=== PATIENT | male | born 1985 | race Caucasian/White ===

== ENCOUNTER 2022-01-03 21:47 | Emergency (ER) | payer BC, SELFPAY ==
[2022-01-03 21:53] VITALS: BP 123/80; PULSE 116; RESP 18; TEMP 36.9; O2SAT 98; BMI 27.6
--- NOTE | 2022-01-03 22:14 | CRLHL7_ITS ---
For Patients: As a result of the Century Cures Act, medical imaging exams and procedure reports are released immediately into your electronic medical record. You may view this report before your referring provider. If you have questions, please contact your health care provider. INDICATION: Seizure TECHNIQUE: CT head without contrast. COMPARISON: None FINDINGS: CSF spaces: Within normal limits for age. Brain parenchyma: The cornell-white differentiation is normal. No sign of mass, hemorrhage, or midline shift. There is encephalomalacia in the left frontal lobe deep to the craniotomy site. Skull base and calvarium: The visualized paranasal sinuses and mastoid air cells demonstrate no acute or significant findings. The visualized orbits are grossly unremarkable. No skull fractures. Status post left frontal craniotomy. IMPRESSION: No acute abnormality. Status post left frontal craniotomy with underlying encephalomalacia. MRI may be useful for further evaluation if clinically indicated. Please note that all CT scans at this facility use dose modulation, iterative reconstruction, and/or weight-based dosing when appropriate to reduce radiation dose to as low as reasonably achievable. Dictated by Felicita Cordero MD @ 01/03/2022 10:59:07 PM (Electronically Signed)
--- NOTE | 2022-01-03 22:16 | ED_ITS ---
HPI - Seizure General Chief Complaint: Seizure Stated Complaint: Seizure Time Seen by Provider: 01/03/22 21:59 History of Present Illness HPI Narrative: This 36-year-old male comes in at the direction of his neurologist, Dr. Porter, from [place]. 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 This chemotherapy can cause tumor hemorrhage. He has had a resection of the tumor and is on this medicine adjunctively. He has had a few seizures in the somewhat distant past. He has been taking Keppra. Today he had a tonic-clonic seizure that started in his right lower extremity and then progressed throughout his body. This lasted for about 4 minutes. After awakening from the postictal state he did take his regular dose of Keppra 1000 mg in the evening. After this his primary doctor was contacted who requested he comes in here to have a CT scan to rule out of possible tumor hemorrhage which this new chemotherapy he is on presents some element of risk. The patient states that he has a headache but it is not the worst headache of his life. He feels tired with postictal symptoms. He was able to ambulate in here normally. Related Data Home Medications Medication Instructions Recorded Confirmed levetiracetam 1,000 mg tablet mg PO Q12H 01/03/22 sulfamethoxazole 400 tab 01/03/22 mg-trimethoprim 80 mg tablet Allergies Allergy/AdvReac Type Severity Reaction Status Date / Time No Known Drug Allergies Allergy Verified 01/03/22 21:57 Review of Systems Status of ROS: Reports: 10 or more systems reviewed and unremarkable except as noted in History and below Narrative: Constitutional: No fevers, no weight gain or loss. Eyes: No discharge. No vision changes. HENT: No congestion, no sore throat, no ear pain. He reports a headache. Cardiovascular: No chest pain, no palpitations. Respiratory: No shortness of breath, no wheezes, no cough. Gastrointestinal: No abdominal pain, no vomiting, no diarrhea. Genitourinary: No dysuria, no hematuria. Musculoskeletal: Normal range of motion. Skin: No rashes, no pruritis. Neurological: No dizziness, weakness, sensory change, speech change. Recent seizure with postictal symptoms that have now essentially resolved. Endo/Heme/Allergies: No bruising or bleeding. No polydipsia. Pysch: no suicidality, no anxiety, no insomnia. All other systems reviewed and are negative. PFSH PFSH Social History Smoking Status: Never smoker How often do you have a drink containing alcohol: never AUDIT-C Alcohol total score: 0 Non-prescribed substance use details: medicinal marijuana Exam Narrative: Exam Narrative: Constitutional: Well-developed, well-nourished, no acute distress. HEENT: Normocephalic, atraumatic. Surgical wound in the left side of his head as the astrocytoma tumor was resected in the past. Neck: Normal range of motion. Nontender. Supple. Heart: Regular. No murmurs. Normal rate. Intact distal pulses. Lungs: Clear to auscultation. No chest discomfort. No wheezes, rhonchi, or rales. Abdomen: Normal bowel sounds. Nontender. No rebound tenderness. Genitalia: Deferred. Back: No midline tenderness. Normal range of motion. Extremities: Normal range of motion. No injury. Skin: Intact. No rash. Warm. No erythema or pallor. Neurologic: No altered sensation. No weakness. Alert and oriented. Psychiatric: No suicidality. No anxiety or depression. No insomnia. Nursing notes and vitals signs are reviewed. Const: Vital Signs, click to edit/add: Vital Signs - 24 hr 01/03/22 21:53 Temperature 98.4 F Pulse Rate [Left P ulse Oximeter] 116 H Respiratory Rate 18 Blood Pressure [Ri ght Upper Arm] 123/80 Pulse Oximetry 98 Oxygen Delivery Me thod Room Air Course Vital Signs Vital signs: Initial Vital Signs Temperature 98.4 F 01/03/22 21:53 Temperature Source Oral 01/03/22 21:53 Pulse Rate 116 H 01/03/22 21:53 Respiratory Rate 18 01/03/22 21:53 Blood Pressure 123/80 01/03/22 21:53 Blood Pressure Mean 94 01/03/22 21:53 Blood Pressure Position Sitting 01/03/22 21:53 Pulse Oximetry 98 01/03/22 21:53 Oxygen Delivery Method 01/03/22 21:53 Vital Signs Temperature 98.4 F 01/03/22 21:53 Pulse Rate 116 H 01/03/22 21:53 Respiratory Rate 18 01/03/22 21:53 Blood Pressure 123/80 01/03/22 21:53 Pulse Oximetry 98 01/03/22 21:53 Oxygen Delivery Method 01/03/22 21:53 Temperature 98.4 F 01/03/22 21:53 Pulse Rate 116 H 01/03/22 21:53 Respiratory Rate 18 01/03/22 21:53 Blood Pressure 123/80 01/03/22 21:53 Pulse Oximetry 98 01/03/22 21:53 Oxygen Delivery Method 01/03/22 21:53 MDM - Seizure MDM Narrative Medical decision making narrative: This patient comes in to rule out a hemorrhage in the tumor in his brain as he just recently had a seizure. A CT scan is ordered and an IV was established. The patient's primary physician also requested that he receive an additional gram of Keppra intravenously. CT imaging returns with no acute findings and certainly no sign of hemorrhaging. The patient states that he is feeling okay but continues to have a [id number] headache. He is okay to be discharged home. He will be able to follow-up with his neurologist for further plans. Imaging Data CT scan - head: Radiologist's impression: No acute abnormality. Status post left frontal craniotomy with underlying encephalomalacia. Discharge Plan Discharge Clinical Impression: Astrocytoma, Generalized seizure Patient Disposition: Home, Self-Care Condition: Improved Instructions: Nonepileptic Seizures (ED) Additional Instructions: Follow-up with primary physician. Return if recurrent or worsening symptoms happen. Prescriptions: No Action sulfamethoxazole-trimethoprim 400-80 mg tablet Label Comments: TAKE 1 TABLET BY MOUTH DAILY FOR PROPHYLAXIS. CONTINUE UNTIL RECOVERY OF LYMPHOPENIA AFTER COMPLETION OF TEMOZOLOMIDE levetiracetam 1,000 mg tablet PO Q12H Follow Up/Referrals: Provider,Not a Local [Primary Care Provider] - Stand Alone Forms: [employer] Info Instructions
[2022-01-03 23:00] VITALS: BP 111/79; PULSE 80; RESP 16; O2SAT 95
[2022-01-03 23:30] VITALS: BP 106/70; PULSE 72; RESP 16; O2SAT 95
[2022-01-04] VITALS: BP 113/77; PULSE 62; RESP 16; O2SAT 93
[2022-01-05 11:41] LABS: Keppra (Levetiracetam) 29 ug/mL (10-40)
== END 2022-01-04 00:08 | disposition home or self-care (01) ==
PROVIDERS: Emergency Provider Emergency Medicine Emergency Medical Services
DX: C71.9 Malignant neoplasm of brain, unspecified (principal); G40.409 Other generalized epilepsy and epileptic syndromes, not intractable, without status epilepticus
CPT/HCPCS: 36415; 70450; 80177; 96365; 99283; 99284; 99285; J1953

== ENCOUNTER 2022-04-18 08:21 | Outpatient (CLI) | payer BC, SELFPAY ==
[2022-04-18 08:43] LABS: Basophils Percent Auto 0.3 % (0.0-3.0); Eosinophils Percent Auto 2.6 % (0.0-7.0); Hematocrit 45.3 % (37.0-53.0); Hemoglobin* 15.7 gm/dL (13.5-17.5); Lymphocytes Percent Auto 35.4 % (20-44); Mean Corpuscular HGB Conc 35 gm/dL (32-36); Mean Corpuscular Hemoglobin 33 pg (26-34); Mean Corpuscular Volume 94 fL (80-100); Monocytes Percent Auto 8.2 % (0.0-11.0); Neutrophils Percent Auto 53.5 % (42.0-72.0); Platelet Count* 175 K/uL (140-440); RDW Coefficient of Variation % 14.3 % (11.5-15.5); Red Blood Count 4.82 m/uL (4.30-5.90); White Blood Count* 3.79 K/uL (4.50-11.00)
[2022-04-18 08:44] LABS: Slide Review Reflex No
== END 2022-04-18 08:22 | disposition home or self-care (01) ==
DX: C71.9 Malignant neoplasm of brain, unspecified (principal)
CPT/HCPCS: 36415; 85025

== ENCOUNTER 2022-06-04 11:31 | Emergency (ER) | payer BC, SELFPAY ==
[2022-06-04 11:47] VITALS: BP 143/87; PULSE 99; RESP 18; TEMP 36.7; O2SAT 95; BMI 26.5
--- NOTE | 2022-06-04 12:23 | ED_ITS ---
HPI - General Adult General Chief complaint: Constipation Stated complaint: GI Issues Time Seen by Provider: 06/04/22 12:05 History of Present Illness HPI narrative: This 37-year-old male comes in reporting constipation over the past several weeks. He finished chemotherapy 6 weeks ago for an astrocytoma. He was on an antibiotic during the time of the chemotherapy but is no longer. He also recently discontinued his zonisamide. He has been taking MiraLax, senna, and bisacodil sodium. He does report some increased urinary frequency. He does not have any fevers and has no abdominal pain. He has no nausea or vomiting. He is not taking any narcotic medications. Related Data Home Medications Medication Instructions Recorded Confirmed lacosamide 150 mg tablet 150 mg PO BID 03/05/22 03/05/22 levetiracetam 500 mg ea PO 03/05/22 03/05/22 tablet,extended release 24 hr levetiracetam 750 mg 3,000 mg PO Q24H 03/05/22 03/05/22 tablet,extended release 24 hr midazolam 5 mg/spray (0.1 mL) ea intranasal 03/05/22 03/05/22 nasal spray (Nayzilam) ondansetron HCl 8 mg tablet 8 mg PO QDAY PRN nausea and 03/05/22 03/05/22 vomiting prochlorperazine maleate 10 mg 10 mg PO Q6H PRN nausea and 03/05/22 03/05/22 tablet vomiting temozolomide 180 mg capsule cap PO 03/05/22 03/05/22 temozolomide 250 mg capsule cap PO 03/05/22 03/05/22 zonisamide 100 mg capsule ea PO 03/05/22 03/05/22 Allergies Allergy/AdvReac Type Severity Reaction Status Date / Time No Known Drug Allergies Allergy Verified 01/03/22 21:57 Review of Systems Status of ROS: Reports: 10 or more systems reviewed and unremarkable except as noted in History and below Narrative: Constitutional: No fevers, no weight gain or loss. Eyes: No discharge. No vision changes. HENT: No congestion, no sore throat, no ear pain. Cardiovascular: No chest pain, no palpitations. Respiratory: No shortness of breath, no wheezes, no cough. Gastrointestinal: No abdominal pain, no vomiting, no diarrhea. He reports constipation. Genitourinary: No hematuria. Some increased urinary frequency that he attributes to constipation. Musculoskeletal: Normal range of motion. Skin: No rashes, no pruritis. Neurological: No dizziness, weakness, sensory change, speech change. Endo/Heme/Allergies: No bruising or bleeding. No polydipsia. Pysch: no suicidality, no anxiety, no insomnia. All other systems reviewed and are negative. PFSH PFS Social History Smoking Status: Never smoker How often do you have a drink containing alcohol: never AUDIT-C Alcohol total score: 0 Non-prescribed substance use details: medicinal marijuana Exam Narrative: Exam Narrative: Constitutional: Well-developed, well-nourished, no acute distress. HEENT: Normocephalic, atraumatic. Neck: Normal range of motion. Nontender. Supple. Heart: Regular. No murmurs. Normal rate. Intact distal pulses. Lungs: Clear to auscultation. No chest discomfort. No wheezes, rhonchi, or ral es. Abdomen: Normal bowel sounds. Nontender. No rebound tenderness. No findings suspicious of obstruction. Genitalia: Deferred. Back: No midline tenderness. Normal range of motion. Extremities: Normal range of motion. No injury. Skin: Intact. No rash. Warm. No erythema or pallor. Neurologic: No altered sensation. No weakness. Alert and oriented. Psychiatric: No suicidality. No anxiety or depression. No insomnia. Nursing notes and vitals signs are reviewed. Const: Vital Signs, click to edit/add: Vital Signs - 24 hr 06/04/22 11:47 Temperature 98.0 F Pulse Rate [Right Pulse Oximeter] 99 Respiratory Rate 18 Blood Pressure [Ri ght Upper Arm] 143/87 H Pulse Oximetry 95 Oxygen Delivery Me thod Room Air Course Vital Signs Vital signs: Initial Vital Signs Temperature 98.0 F 06/04/22 11:47 Temperature Source Temporal Artery Scan 06/04/22 11:47 Pulse Rate 99 06/04/22 11:47 Pulse Rhythm 06/04/22 11:47 Respiratory Rate 18 06/04/22 11:47 Blood Pressure 143/87 H 06/04/22 11:47 Blood Pressure Mean 105 06/04/22 11:47 Blood Pressure Position Sitting 06/04/22 11:47 Pulse Oximetry 95 06/04/22 11:47 Oxygen Delivery Method 06/04/22 11:47 Vital Signs Temperature 98.0 F 06/04/22 11:47 Pulse Rate 99 06/04/22 11:47 Respiratory Rate 18 06/04/22 11:47 Blood Pressure 143/87 H 06/04/22 11:47 Pulse Oximetry 95 06/04/22 11:47 Oxygen Delivery Method 06/04/22 11:47 Temperature 98.0 F 06/04/22 11:47 Pulse Rate 99 06/04/22 11:47 Respiratory Rate 18 06/04/22 11:47 Blood Pressure 143/87 H 06/04/22 11:47 Pulse Oximetry 95 06/04/22 11:47 Oxygen Delivery Method 06/04/22 11:47 Medical Decision Making MDM Narrative Medical decision making narrative: This patient initially was thinking that he should have a CT scan because of his symptoms of constipation. His vital signs and exam actually are rather normal. I did discuss lab and imaging options and these were declined in a process of shared decision making. I did describe treatment options including how an enema can be administered. He states that he wants to go home and use an enema and [id number] oral medications more effectively to get better results. Discharge Plan Discharge Clinical Impression: Constipation Patient Disposition: Home, Self-Care Condition: Stable Additional Instructions: Use [id number] medicines for constipation as needed and directed. Follow up with MD or return if worsening symptoms happen. Prescriptions: No Action levetiracetam 750 mg tablet extended release 24 hr 3,000 mg PO Q24H levetiracetam 500 mg tablet extended release 24 hr PO Label Comments: TAKE 1 TABLET BY MOUTH EVERY DAY Nayzilam 5 mg/spray (0.1 mL) spray,non-aerosol intranasal zonisamide 100 mg capsule PO prochlorperazine maleate 10 mg tablet 10 mg PO Q6H PRN (Reason: nausea and vomiting) Label Comments: TAKE 1 TABLET BY MOUTH EVERY 6 HOURS NEEDED FOR FORNAUSEA AND VOMITING lacosamide 150 mg tablet 150 mg PO BID ondansetron HCl 8 mg tablet 8 mg PO QDAY PRN (Reason: nausea and vomiting) Label Comments: takes 5 times a month during chemo temozolomide 250 mg capsule PO temozolomide 180 mg capsule PO Follow Up/Referrals: Provider,Not a Local [Primary Care Provider] - Stand Alone [facility]
[2022-06-04 12:42] VITALS: BP 143/87; PULSE 99; RESP 18; TEMP 36.7
== END 2022-06-04 12:42 | disposition home or self-care (01) ==
PROVIDERS: Emergency Provider Emergency Medicine Emergency Medical Services
DX: K59.00 Constipation, unspecified (principal)
CPT/HCPCS: 99282; 99283; 99284

== ENCOUNTER 2022-06-06 13:10 | Emergency (ER) | payer BC, SELFPAY ==
[2022-06-06 13:28] VITALS: BP 133/83; PULSE 80; RESP 16; TEMP 36.9; O2SAT 98; BMI 26.5
--- NOTE | 2022-06-06 13:57 | ED_ITS ---
HPI - General Adult General Date Seen: 06/06/22 Chief complaint: Abdominal Pain Stated complaint: Constipation worse since Monday Time Seen by Provider: 06/06/22 13:39 Source: patient and family Mode of arrival: ambulatory Limitations: no limitations History of Present Illness HPI narrative: Patient is a 37-year-old male here for re-evaluation of constipation. He has an astrocytoma, has been undergoing chemotherapy. He has been done with chemotherapy and with antibiotics now for a bit, but has been having difficulty with constipation which it sounds like was mild until the past week or so. He was seen here a few days ago, at that time denied much of an intervention but did go home unused magnesium sulfate along with MiraLax 2 days ago. He said he had a lot of liquid stool at that time but still feels like he has an obstruction. Initially, it sounded like this maybe was impacted stool. He was noting of frequent urination, going every 3 hours or so but also notes that he has been drinking lot of fluid. He really has not had much no abdominal pain. No nausea or vomiting. He says he has been eating a lot, did not need as much today because he was afraid of putting more in his stomach because he has not had a bowel movement yesterday or today. He still feels like he needs to go, he was up overnight last night feeling like he is ago was not able to. Related Data Home Medications Medication Instructions Recorded Confirmed lacosamide 150 mg tablet 150 mg PO BID 03/05/22 03/05/22 midazolam 5 mg/spray (0.1 mL) ea intranasal 03/05/22 03/05/22 nasal spray (Nayzilam) temozolomide 180 mg capsule cap PO 03/05/22 03/05/22 temozolomide 250 mg capsule cap PO 03/05/22 03/05/22 brivaracetam 100 mg tablet 100 mg PO BID 06/06/22 06/06/22 (Briviact) trazodone 100 mg tablet mg PRN 06/06/22 Allergies Allergy/AdvReac Type Severity Reaction Status Date / Time No Known Drug Allergies Allergy Verified 01/03/22 21:57 Review of Systems Status of ROS: Reports: 6 or more systems reviewed and unremarkable except as noted in History and below PFSH PFSH Social History Smoking Status: Never smoker How often do you have a drink containing alcohol: never AUDIT-C Alcohol total score: 0 Non-prescribed substance use details: medicinal marijuana Exam Narrative: Exam Narrative: Vital signs as noted above. In general, an alert, well-appearing patient. Head: Normocephalic, atraumatic. Eyes: Pupils are equal reactive. Extraocular movements are full. Conjunctivae are normal. ENT: Mucous membranes are moist. Throat is normal. Neck: Supple without lymphadenopathy. Heart: Regular rate and rhythm. No murmur or rub. Lungs: Clear bilaterally. No increased work of breathing, crackles or wheezes. Abdomen: Soft and nontender. No organomegaly. Rectal: Empty vault, nontender. Extremities: Well perfused. No edema. No calf tenderness. Pulses intact. Neurologic: Patient is alert and oriented to person and place. Speech is fluent. Face is symmetric. Moves all extremities equally. Affect: Normal. Skin: Warm and dry. Well perfused. Const: Vital Signs, click to edit/add: Vital Signs - 24 hr 06/06/22 13:28 Temperature 98.4 F Pulse Rate [Right Pulse Oximeter] 80 Respiratory Rate 16 Blood Pressure [Ri ght Upper Arm] 133/83 Pulse Oximetry 98 Oxygen Delivery Me thod Room Air Documenting provider has reviewed patient's vital signs: yes Course Course Hospital Course: Patient had an abdominal flat and upright. He does still have a fair amount of stool in the colon, no free air or evidence of obstruction. Final radiology read is as follows:Bowel: Bowel pattern is normal. Diffuse colonic fecal retention. Soft tissues: No sign of free air. No sign of soft tissue mass. No suspicious calcifications. Bones: Unremarkable for age. I have recommended that we try an enema. There is no evidence of rectal fecal impaction. I have tried to reassure them that there is nothing to suggest a bowel obstruction. He does not have significant abdominal pain, he is not vom iting, his abdominal exam is entirely benign, and my suspicion for more significant abdominal diagnosis such as appendicitis, colitis, diverticulitis, bowel obstruction, pancreatitis, cholecystitis, etcetera is extraordinarily low. I think if he is able to have a bowel movement and feels improved I would not recommend further evaluation, although apparently at his last visit CT scan with contrast was discussed in his is still very interested at this point in doing a CT scan. Will see how he feels after an enema. Following the pink lady, patient had a large amount of stool. He feels sig nificantly better. He does not feel he needs additional workup. We talked about keeping up with MiraLax and fluids. If he is having ongoing difficulties with constipation would recommend follow-up with primary care. Return to the ER if he has a change in his symptoms such as if he develops significant abdominal pain, vomiting, fever, etcetera. He is comfortable with that. Vital Signs Vital signs: Initial Vital Signs Temperature 98.4 F 06/06/22 13:28 Temperature Source Temporal Artery Scan 06/06/22 13:28 Pulse Rate 80 06/06/22 13:28 Pulse Rhythm 06/06/22 13:28 Respiratory Rate 16 06/06/22 13:28 Blood Pressure 133/83 06/06/22 13:28 Blood Pressure Mean 99 06/06/22 13:28 Blood Pressure Position Sitting 06/06/22 13:28 Pulse Oximetry 98 06/06/22 13:28 Oxygen Delivery Method 06/06/22 13:28 Vital Signs Temperature 98.4 F 06/06/22 13:28 Pulse Rate 80 06/06/22 13:28 Respiratory Rate 16 06/06/22 13:28 Blood Pressure 133/83 06/06/22 13:28 Pulse Oximetry 98 06/06/22 13:28 Oxygen Delivery Method 06/06/22 13:28 Temperature 98.4 F 06/06/22 13:28 Pulse Rate 80 06/06/22 13:28 Respiratory Rate 16 06/06/22 13:28 Blood Pressure 133/83 06/06/22 13:28 Pulse Oximetry 98 06/06/22 13:28 Oxygen Delivery Method 06/06/22 13:28 Discharge Plan Discharge Clinical Impression: Constipation Patient Disposition: Home, Self-Care Condition: Improved Instructions: Constipation (ED) Additional Instructions: Continue MiraLax daily, plenty of fluids. If ongoing problems with constipation, follow up with primary care. Return to the ER for severe abdominal pain, vomiting, fevers, or other acute worsening Activity Level: No Restrictions Discharge Diet: Regular Diet Detail: Include fiber rich foods and drinking plenty of fluids into your diet. Prescriptions: No Action Nayzilam 5 mg/spray (0.1 mL) spray,non-aerosol intranasal lacosamide 150 mg tablet 150 mg PO BID temozolomide 250 mg capsule PO temozolomide 180 mg capsule PO Briviact 100 mg tablet 100 mg PO BID trazodone 100 mg tablet PRN Label Comments: TAKE 1 TABLET ONCE DAILY BY MOUTH BEFORE BEDTIME Follow Up/Referrals: Provider,Not a Local [Primary Care Provider] - Stand Alone [facility] Discharge Comment: Pt discharging with , went over high fiber diet and importance of drinking water and incorporating fiber into his diet.
--- NOTE | 2022-06-06 14:20 | CRLHL7_ITS ---
For Patients: As a result of the Cures Act, medical imaging exams and procedure reports are released immediately into your electronic medical record. You may view this report before your referring provider. If you have questions, please contact your health care provider. INDICATION: Constipation TECHNIQUE: Abdomen 2 view. COMPARISON: None FINDINGS: Bowel: Bowel pattern is normal. Diffuse colonic fecal retention. Soft tissues: No sign of free air. No sign of soft tissue mass. No suspicious calcifications. Bones: Unremarkable for age. IMPRESSION: Diffuse colonic fecal retention. Dictated by Michael Long MD @ 06/06/2022 2:56:03 PM Dictated by: Michael Lnog MD @ 06/06/2022 14:56:11 (Electronically Signed)
[2022-06-06] MEDS: DOC/MIN OIL/MAG CIT/SOD PHOS 376 ML ENEMA PR (15:16)
== END 2022-06-06 15:53 | disposition home or self-care (01) ==
PROVIDERS: Emergency Provider Emergency Medicine
DX: K59.00 Constipation, unspecified (principal)
CPT/HCPCS: 74019; 99283; 99284

== ENCOUNTER 2022-09-13 11:30 | Outpatient (RCR) | payer BC, SELFPAY | END 2023-01-10 13:51 | disposition home or self-care (01) | PROVIDERS: PCP Physician Assistant; Visit Provider Physician Assistant | DX: C71.9 Malignant neoplasm of brain, unspecified (principal); M62.81 Muscle weakness (generalized); Z51.89 Encounter for other specified aftercare | CPT/HCPCS: 97110; 97112; 97162 ==

== ENCOUNTER 2024-01-26 22:22 | Emergency (ER) | payer BC, SELFPAY ==
[2024-01-26 22:33] VITALS: BP 141/89; PULSE 86; RESP 16; TEMP 37; O2SAT 98; BMI 29.8
[2024-01-26 23:15] LABS: Basophils Absolute Auto 0.02 K/uL (0.00-0.30); Basophils Percent Auto 0.3 % (0.0-3.0); Eosinophils Absolute Auto 0.38 K/uL (0.00-0.50); Eosinophils Percent Auto 6.4 % (0.0-7.0); Hematocrit 53.7 % (37.0-53.0); Hemoglobin* 17.8 gm/dL (13.5-17.5); Immature Granulocytes Abs Auto 0.01 K/uL (0.00-0.30); Immature Granulocytes Pct Auto 0.2 %; Lymphocytes Absolute Auto 2.57 K/uL (0.90-2.90); Lymphocytes Percent Auto 43.3 % (20-44); Mean Corpuscular HGB Conc 33 gm/dL (32-36); Mean Corpuscular Hemoglobin 29 pg (26-34); Mean Corpuscular Volume 89 fL (80-100); Monocytes Percent Auto 8.8 % (0.0-11.0); Platelet Count* 208 K/uL (140-440); RDW Coefficient of Variation % 13.1 % (11.5-15.5); Red Blood Count 6.05 m/uL (4.30-5.90); White Blood Count* 5.94 K/uL (4.50-11.00)
[2024-01-26 23:17] LABS: Slide Review Reflex No
[2024-01-26 23:29] LABS: Chloride* 102 mmol/L (96-114); Potassium* 3.9 mmol/L (3.6-5.1); Sodium* 138 mmol/L (135-149)
[2024-01-26 23:32] LABS: Anion Gap 11 mEq/L (7-15); Blood Urea Nitrogen* 18 mg/dL (5-24); Carbon Dioxide* 25 mmol/L (20-32); Creatinine* 0.9 mg/dL (0.5-1.5); Est. Creatinine Clearance* 122.15; Estimated Glomerular Filt Rate 112 ml/min; Glucose* 100 mg/dL (60-115)
[2024-01-26 23:33] LABS: Calcium* 9.3 mg/dL (8.4-10.6)
--- NOTE | 2024-01-26 23:53 | ED_ITS ---
HPI - General Adult General Date Seen: 01/26/24 Chief complaint: Chest Pain Stated complaint: chest pain Time Seen by Provider: 01/26/24 23:52 History of Present Illness HPI narrative: 38-year-old male with a history of astrocytoma (previous chemotherapy), brivace juarez, lancosamide prevent seizures, presenting to the ER today with his with concern for chest pain. He notes that he has had occasional very brief episodes of chest pain off and on every few months for several months. There is no pattern to them and they are not related to exertion or any other activity or position. He started having chest pain tonight at about 9:50 p.m.. He had been feeling normal earlier today. No other recent illness or symptoms. His notes that he had chili for dinner and she wonders if he might have been having a ?heartburn. ? Patient says the pain did not feel in any way like previous episodes of heartburn that he used experience His chest pain was located in the left upper chest just lateral to the left upper sternal border. It was sharp in nature. It was pleuritic. It also is worse with movement. It did not radiate. No symptoms through to the back, down the abdomen, up to the jaw, down the arm. No palpitations. It made him sweaty. It was quite intense. No nausea or vomiting. No dizziness. He has no recent travel or immobilization. No recent surgery. No swelling in his legs. No family history of coronary disease. Never smoker. Does not drink alcohol. No drugs. He has been consistent in taking his seizure meds and has not had a seizure in several years. He had previous resection of his astrocytoma at [facility]. He has completed his chemotherapy. He has had good response to therapy. The tumor is still there in his brain but is not growing. He is currently in surveillance. He actually has an appointment next week at [facility] for a follow-up. Related Data Home Medications ?Medication ?Instructions ?Recorded ?Confirmed midazolam 5 mg/spray (0.1 mL) ea intranasal 03/05/22 11/21/23 nasal spray (Nayzilam) brivaracetam 100 mg tablet 100 mg PO BID 06/06/22 11/21/23 (Briviact) lacosamide 200 mg tablet mg PO 09/21/23 11/21/23 Allergies Allergy/AdvReac Type Severity Reaction Status Date / Time zonisamide Allergy Verified 11/21/23 15:07 [facility] Medical History History of brain cancer ?Z85.841 - Personal history of malignant neoplasm of brain (ICD-10) Seizures ?R56.9 - Unspecified convulsions (ICD-10) Surgical History H/O brain surgery ?Z98.890 - Other specified postprocedural states (ICD-10) Social History (Updated 10/24/23 @ 14:49 by Marycruz Rayo ~ [facility], [facility]) Narrative: former chewing tobacco user Smoking Status: Never smoker Do you use any of these nicotine containing products: None Second hand tobacco smoke exposure: No How often do you have a drink containing alcohol: never AUDIT-C Alcohol total score: 0 Non-prescribed substance use details: medicinal marijuana Exam Narrative: Exam Narrative: Constitutional: Appears well-developed and well-nourished. Alert. Conversant. Non toxic. HENT: Head: Atraumatic. Nose: Nose normal. Mouth/Throat: Oral mucosa is clear and moist. no trismus. Pharynx normal. Eyes: Conjunctivae normal. EOM normal. Pupils equal, round, and reactive to light. No scleral icterus. Neck: Normal range of motion. Neck supple. No tracheal deviation present. No JVD Cardiovascular: Normal rate, regular rhythm. No gallop. No friction rub. No murmur heard. Symmetric radial and PT artery pulses Pulmonary/Chest: Effort normal. No stridor. No respiratory distress. No wheezes. No rales. No rhonchi . No tenderness. No rash Abdominal: Soft. Bowel sounds normal. No distension. No mass. No tenderness. No rebound. No guarding. Musculoskeletal: RUE: Normal range of motion. No tenderness. No deformity LUE: Normal range of motion. No tenderness. No deformity RLE: Normal range of motion. No edema. No tenderness. No deformity LLE: Normal range of motion. No edema. No tenderness. No deformity Neurological: Alert and oriented to person, place, and time. Normal strength. CN II-VII intact. No sensory deficit. GCS eye subscore is 4. GCS verbal subscore is 5. GCS motor subscore is 6. Normal coordination Skin: Skin is warm and dry. No rash noted. No pallor. Normal capillary refill. Psychiatric: Normal mood. Normal affect. Const: Vital Signs, click to edit/add: Vital Signs - 24 hr 01/26/24 22:33 Temperature 98.6 F Pulse Rate [Pulse Oximeter] 86 Respiratory Rate 16 Blood Pressure [Ri ght Upper Arm] 141/89 H Pulse Oximetry 98 Oxygen Delivery Me thod Room Air Course Vital Signs Vital signs: Initial Vital Signs Temperature 98.6 F 01/26/24 22:33 Temperature Source Temporal Artery Scan 01/26/24 22:33 Pulse Rate 86 01/26/24 22:33 Pulse Rhythm Regular 01/26/24 22:33 Respiratory Rate 16 01/26/24 22:33 Blood Pressure 141/89 H 01/26/24 22:33 Blood Pressure Mean 106 H 01/26/24 22:33 Blood Pressure Position Sitting 01/26/24 22:33 Pulse Oximetry 98 01/26/24 22:33 Oxygen Delivery Method Room Air 01/26/24 22:33 Vital Signs Temperature 98.6 F 01/26/24 22:33 Pulse Rate 86 01/26/24 22:33 Respiratory Rate 16 01/26/24 22:33 Blood Pressure 141/89 H 01/26/24 22:33 Pulse Oximetry 98 01/26/24 22:33 Oxygen Delivery Method Room Air 01/26/24 22:33 Temperature 98.6 F 01/26/24 22:33 Pulse Rate 86 01/26/24 22:33 Respiratory Rate 16 01/26/24 22:33 Blood Pressure 141/89 H 01/26/24 22:33 Pulse Oximetry 98 01/26/24 22:33 Oxygen Delivery Method Room Air 01/26/24 22:33 Medications Administered Medications: Discontinued Medications Generic Name Dose Route Start Last Admin Trade Name Freq PRN Reason Stop Dose Admin Aspirin 162 mg 01/27/24 00:20 01/27/24 01:24 Aspirin 81 Mg Tab.Chew PO 01/27/24 00:21 Not Given ONCE ONE Medical Decision Making MDM Narrative Medical decision making narrative: This patient presents to the ER today for evaluation of chest pain that began at 9:50 p.m. tonight while at rest. Differential was broad. No evidence of palpitations, syncope or other cardiac dysrhythmia. We considered possible ACS, however workup with EKG and troponin is negative. HEART score is 1. Given time since onset of symptoms, I do not think the patient needs to be admitted for further sets of enzymes. EKG shows no evidence for pericarditis. Clinical presentation not suggestive of myocarditis. Chest x-ray shows no evidence for pneumonia, pneumothorax, pulmonary edema, pleural effusion, rib fracture, cardiomegaly. Mediastinum is normal on the x-ray. The patient has no ripping or tearing pain through to the back and has symmetric pulses on exam, no other acute neuro findings so I doubt aortic dissection. Risk of radiation and contrast exposure would outweigh the benefit of CT angiogram. We considered PE for this patient. Overall low risk but does have history of malignancy and did have sinus tachycardia on presenting EKG. No other signs or symptoms of PE. Overall low risk. D-dimer negative so will hold off on CT PA. No wheezing or bronchospasm to suggest COPD/asthma. No signs of chest wall cellulitis, shingles, injury. CBC does show an elevated hemoglobin at 17.8. Patient says that his doctors at [facility] had been following this when he was on chemotherapy. Unclear if he has underlying polycythemia. Recommend outpatient follow-up with his providers at [facility]. He has an appointment in 5 days on Monday. With reasonable clinical confidence, I think the patient is safe for outpatient follow up. Discussed return precautions. Questions answered. Patient voices comfort with the plan. Lab Data Labs: Lab Results 01/26/24 01/26/24 01/27/24 Range/Units 22:42 23:05 00:55 WBC 5.94 (4.50-11.00) K/uL RBC 6.05 H (4.30-5.90) m/uL Hgb 17.8 H (13.5-17.5) gm/dL Hct 53.7 H (37.0-53.0) % MCV 89 (80-100) fL MCH 29 (26-34) pg MCHC 33 (32-36) gm/dL RDW Coeff of [place] 13.1 (11.5-15.5) % Plt Count 208 (140-440) K/uL Neut % (Auto) 41.0 L (42.0-72.0) % Lymph % (Auto) 43.3 (20-44) % [place] % (Auto) 8.8 (0.0-11.0) % Eos % (Auto) 6.4 (0.0-7.0) % Baso % (Auto) 0.3 (0.0-3.0) % Neut # (Auto) 2.40 (1.7-7.0) K/uL Lymph # (Auto) 2.57 (0.90-2.90) K/uL [place] # (Auto) 0.50 (0.00-0.90) K/UL Eos # (Auto) 0.38 (0.00-0.50) K/uL Baso # (Auto) 0.02 (0.00-0.30) K/uL Abs Immat Gran (auto) 0.01 (0.00-0.30) K/uL Imm/Tot Granulo (auto) 0.2 % D-Dimer Quant (PE/DVT) 0.26 (0.00-0.50) ug/ml Sodium 138 (135-149) mmol/L Potassium 3.9 (3.6-5.1) mmol/L Chloride 102 (96-114) mmol/L Carbon Dioxide 25 (20-32) mmol/L Anion Gap 11 (7-15) mEq/L BUN 18 (5-24) mg/dL Creatinine 0.9 (0.5-1.5) mg/dL Estimated Creat Clear 122.15 Estimated GFR 112 ml/min Glucose 100 (60-115) mg/dL Calcium 9.3 (8.4-10.6) mg/dL POC Troponin I 0.00 L 0.00 L (0.01-0.04) ng/ml Imaging Data Chest x-ray: Attestation: I have reviewed the pertinent imaging results. Radiologist's impression: Findings/Impression: No acute cardiopulmonary process detected. ECG Data Attestation: I personally reviewed and interpreted this ECG as follows: Interpretation: Sinus tachycardia Rate: 103 MI: 160 QRS axis: No pathologic Q-waves. Computer mentions septal infarct but I do not believe that these are true Q-waves. They are S waves preceded by very small R- waves ST segment/T wave: Nonspecific T-wave flattening 1, 2, aVL, AVF, V3-V6. No ST segment elevation or depression QTc: 411 Discharge Plan Discharge Clinical Impression: Chest pain Patient Disposition: Home, Self-Care Condition: Stable Instructions: Chest Pain (DC) Additional Instructions: As we discussed, please come back to the ER right away if you have any more episodes of chest pain, or if you have other concerning symptoms like trouble breathing, palpitations, fainting spells, or any other problems. Please follow-up with your doctors at [facility] next Monday for your recheck and ask them to recheck your blood counts and hemoglobin level. Prescriptions: No Action Nayzilam 5 mg/spray (0.1 mL) spray,non-aerosol intranasal lacosamide 200 mg tablet PO Briviact 100 mg tablet 100 mg PO BID Follow Up/Referrals: BOB VAZQUEZ DO [Primary Care Provider] - Stand Alone Forms: [facility] Info Instructions
--- NOTE | 2024-01-27 00:20 | CRLHL7_ITS ---
For Patients: As a result of the Cures Act, medical imaging exams and procedure reports are released immediately into your electronic medical record. You may view this report before your referring provider. If you have questions, please contact your health care provider. Indication: Left-sided chest pain Technique: Two views of the chest Comparison: None Findings/Impression: No acute cardiopulmonary process detected. Dictated by Darron Grady MD @ 01/27/2024 12:38:02 AM (Electronically Signed)
--- OUTSIDE RECORDS SUMMARY | 2024-01-27 00:31 | XMS_ITS | Clinical Summary ---
Author Organization [facility] Address [place], [place] [address] Care Team Providers Care Hospital Insurance Clerk Name Role Phone Horacio Steve DO Primary Care Provider [phone] Allergies Active Allergy Reactions Criticality Noted Date Comments Pollen Extracts *Unknown 10/27/2021 Zonisamide Other - Describe In Comment Field 05/30/2022 Suicidal ideations Medications Medication Sig Dispensed Refills Start Date End Date Status midazolam (Nayzilam) 5 mg/spray (0.1 mL) spry Inhale 5 mg into affected nostril(s) one time if needed. 03/02/2022 Active lacosamide (VIMPAT) 200 mg tab tablet Take 1 Tablet (200 mg) by mouth two times daily. 12/12/2022 Active brivaracetam (BRIVIACT) 100 mg tablet Take 2 Tablets (200 mg) by mouth two times daily. 0 12/12/2022 Active Active Problems Problem Noted Date Diagnosed Date Insomnia 07/07/2022 Suicide ideation 05/30/2022 Symptomatic localization-related epilepsy 2022 Problems of adjustment to life-cycle transitions 01/11/2022 Other specified postprocedural states 10/16/2018 Overview (12/12/2022): Last Assessment & Plan: 07/02/15 SURGERY-Left frontal craniotomy with resection by Dr. Satya Reyes, neurosurgery at [facility]. 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 10/16/2018 second SURGERY: Craniotomy by Dr. Vargas. 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 Next generation sequencing through [facility]; Microsatellite Instability Seq DNA-Tumor Stable. Tumor Mutational [place] Seq DNA-Tumor: Low (5). Genomic Loss of Heterozygosity Seq DNA-Tumor: Low - 6% -06/23/2021 thrid SURGERY: Craniotomy for mass resection by Dr. Vargas. PATHOLOGY: WHO grade 2 recurrence. Histologic sections show a hypercellular lesion with numerous gemistocytic neoplastic cells. The mitotic activity is inconspicuous. No necrosis or microvascular proliferation is seen. Post- operative imaging with no evidence for residual enhancement Astrocytoma brain tumor 09/12/2018 Overview (09/12/2018): Followed by Dr. Rivera [phone] Astrocytoma, 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 Immunizations Name Administration Dates Next Due DTP 10/10/1990 MMR 01/07/1998 Oral Polio Vaccine 10/10/1990 Td (Age >=7 Years) 04/14/2004,01/07/1998 Tdap 12/12/2022 Social History Tobacco Use Types Packs/Day Years Used Date Smoking Tobacco: Former Cigarettes 0.3 0.5 0 10/14/2005 - 04/14/2006 Smokeless Tobacco: Former Chew Tobacco Cessation:Counseling Given: Yes Comments:smoked a few cigs/d for 6 mos Alcohol Use Standard Drinks/Week Comments Not Currently 0 (1 standard drink = 0.6 oz pur e alcohol) PHQ-2 Answer Date Recorded PHQ-2 TOTAL SCORE 0 12/12/2022 Social Connections Answer Date Recorded Frequency of Communication with Friends and Fami ly Not on file 12/12/2022 Sex and Gender Information Value Date Recorded Sex Assigned at Not on file Gender Identity Not on file Sexual Orientation Not on file Obstetrics History Last Filed Vital Signs Vital Sign Reading Time Taken Comments Blood Pressure 129/86 12/12/2022 1:25 PM CDT Pulse 74 12/12/2022 1:25 PM CDT Temperature 36.6 ??C (97.9 ??F) 09/12/2018 11:48 AM C DT Respiratory Rate 16 06/09/2022 11:18 AM FERTILIZER PROCESSING SUPERVISOR Oxygen Saturation 98% 12/12/2022 1:25 PM CDT Inhaled Oxygen Concentration - - Weight 100.7 kg (222 lb) 12/12/2022 1:25 PM CDT Height 181 cm (5' 11.25) 12/12/2022 1:25 PM CDT Body Mass Index 30.75 12/12/2022 1:25 PM CDT Plan of Treatment Health Maintenance Due Date Last Done Comments BMI (ht and wt on same day) for age 18+ 12/13/2023 12/12/2022, 09/12/2018, 06/02/2015 Depression screening for age 12+ 12/16/2023 12/15/2022, 12/12/2022, 09/12/2018 COVID-19 vaccine series (2022- season) 2024 Influenza for age 9-49 01/14/2024 Lipids for age 35-44 12/13/2027 12/12/2022 Tetanus booster 12/12/2032 12/12/2022, 04/14/2004, 01/07/1998 HIV for age 15-65 Completed 12/12/2022 Hepatitis C screening for ag e 18-79 Completed 12/12/2022 Tdap Completed 12/12/2022 Pneumococcal series for age 6-64 Aged Out No longer eligible b ased on patient's age to complete this topic Procedures Procedure Name Priority Date/Time Associated Diagnosis Comments LC HIV-1/O/2, 4TH GENERATION Routine 12/12/2022 1:55 PM CDT Screening for HIV (human immunodeficiency virus) LC HCV ANTIBODY RFX TO QUANT PCR Routine 12/12/2022 1:55 PM CDT Need for hepatitis C screening test LIPID PANEL W REFLEX MEASURED LDL Routine 12/12/2022 1:55 PM CDT Annual physical exam from Last 3 Months or Most Recently Relevant to Health Maintenance Results * LC HCV ANTIBODY RFX TO QUANT PCR (12/12/2022 1:55 PM CDT) HCV Ab Non Reactive Non Reactive 12/14/2022 9:06 PM CDT [facility] Blood BLOOD SPECIMEN / Unknown Venipuncture / Unknown 12/12/2022 1:55 PM CDT 12/12/2022 1:56 PM CDT [facility] ([facility]) - 12/14/2022 9:06 PM CDT Performed at: ??[address] ??[id number] Non Categorical Preschool Teacher: Twin Apple MD, Phone: ??[phone] Michellearya Kingshahrzad DO LABORATORY Performing Organization Address City/[facility]/ZIP Co de Phone Number [facility] ([facility]ET) [address] [place] [address] * LC HIV-1/O/2, 4TH GENERATION (12/12/2022 1:55 PM CDT) Pathologist [facility] HIV Scr 4th Gen Non Reactive Non Reactive 12/14/2022 12:08 PM CDT [facility] ([facility]) Comment: HIV Negative HIV-1/HIV-2 antibodies and HIV-1 p24 antigen were NOT detected. There is no laboratory evidence of HIV infection. Blood BLOOD SPECIMEN / Unknown Venipuncture / Unknown 12/12/2022 1:55 PM CDT 12/12/2022 1:56 PM CDT [facility] (CET) - 12/14/2022 12:08 PM CDT Performed at: ??[address] ??[id number] Non Categorical Preschool Teacher: Twin Apple MD, Phone: ??[phone] Horacio Steve DO LABORATORY Performing Organization Address City/[facility]/ZIP Co de Phone Number [facility] ([facility]) [address] [place] [address] * (ABNORMAL) LIPID PANEL W REFLEX MEASURED LDL (12/12/2022 1:55 PM CDT) CHOLESTEROL,TOTAL 233(H) 100 - 199 mg/dL 12/13/2022 1:56 AM CDT [facility] Comment: Cholesterol, Total Reference Ranges Desirable <200 mg/dL Borderline 200-239 mg/dL High >=240 mg/dL TRIGLYCERIDES 115 <150 mg/dL 12/13/2022 1:56 AM CDT [facility] HDL CHOLESTEROL 63 >40 mg/dL 1:56 AM CDT [facility] NON-HDL CHOLESTEROL 170(H) <145 mg/dl 12/13/2022 1:56 AM CDT [facility] CHOL/HDL RATIO 3.70 <4.50 12/13/2022 1:56 AM CDT [facility] LDL CHOLESTEROL 147(H) <=130 mg/dL 12/13/2022 1:56 AM CDT [facility] VLDL CHOLESTEROL 23 <=30 mg/dL 12/13/2022 1:56 AM CDT [facility] PROVIDER ORDERED STATUS RANDOM 12/13/2022 1:56 AM CDT [facility] Blood BLOOD SPECIMEN / Unknown Venipuncture / Unknown 12/12/2022 1:55 PM CDT 12/12/2022 1:56 PM CDT Horacio Steve DO [facility] [address] [place] [address], from Last 3 Months or Most Recently Relevant to Health Maintenance Care Teams Hospital Insurance Clerk Relationship Specialty Start Date End Date Horacio Steve DO [address] [place] [address] PCP - General Family Practice 12/12/22
--- OUTSIDE RECORDS SUMMARY | 2024-01-27 00:31 | XMS_ITS | Encounter Summary ---
Author Organization [facility] Address [address] [place] [address]. [place] [address] Care Team Providers Care Project Coordinator Name Role Phone Renetta Rivera MD Unavailable + [phone] Linda To MD Unavailable [phone] Brenda Hicks RN Unavailable [phone] Bhavya Mooney APRN MEDICATION ASSISTANT Primary Care Provi gabino Unavailable Bhavya Mooney APRN MEDICATION ASSISTANT Unavailable Un available Ragini Ernandez RN Unavailable Unavaila Renetta Garza MD Unavailable + [phone] No Ref-Primary, Physician Primary Care Provider Renetta Rivera MD Unavailable + [phone] She Oh HAMMER FITTER Unavailable She Oh NP Unavailable [phone] [facility] Unavailable Reason for Visit * Reason Onset Date Comments Refill Request 10/24/2018 Encounter Details Date Type Department Care Team (Late st Contact Info) Description 10/24/2018 Miladys Serrano [facility] [address] [place] [id number] She Oh, HAMMER FITTER [address] [id number] Refill Request Social History Tobacco Use Types Packs/Day Years Used Date Smoking Tobacco: Never Smokeless Tobacco: Current Chew Alcohol Use Standard Drinks/Week Comments Yes 0 (1 standard drink = 0.6 oz pur e alcohol) socially PHQ-2 Answer Date Recorded PHQ-2 Score 0 05/22/2018 Sex and Gender Information Value Date Recorded Sex Assigned at Not on file Gender Identity Not on file Sexual Orientation Not on file documented as of this encounter Plan of Treatment Not on file documented as of this encounter Visit Diagnoses Diagnosis Status post craniotomy Other postprocedural status documented in this encounter Care Teams Project Coordinator Relationship Specialty Start Date End Date Bhavya Mooney APRN MEDICATION ASSISTANT PCP - General Nurse Practitioner - [facility] 10/17/18 01/21/21 No Ref-Primary, Physician PCP - General 02/22/21 Renetta Rivera MD [address] [place] [id number] Neurology 11/22/16 06/17/19 Linda To MD [address] [place] [address] [id number] Hematology & Oncology 07/13/16 Brenda Hicks, MILY Specialty Outpatient Scheduler Oncology 04/10/18 09/17/19 Bhavya Mooney APRN MEDICATION ASSISTANT Assigned PCP 10/14/18 10/08/21 Ragini Ernandez RN Specialty Outpatient Scheduler Oncology 09/18/19 09/28/21 Renetta Rivera MD [address] [place] [address] [id number] Assigned Neuroscience Provider 03/06/20 08/26/22 Renetta Rivera MD [address] [place] [id number] Assigned Neuroscience Provider 09/10/22 09/16/22 She Oh NP [address] [address] Assigned Neuroscience Provider 08/27/22 09/09/22 She Oh NP [address] [id number] Assigned Neuroscience Provider 09/17/22 02/03/[address] [id number] Assigned PCP 06/08/23 documented as of this encounter
--- OUTSIDE RECORDS SUMMARY | 2024-01-27 00:31 | XMS_ITS | Encounter Summary ---
Author Organization [facility] Address [address] [place] [address]. [place] [address] Care Team Providers Care Laboratory Chemical Assistant Name Role Phone Linda To MD Unavailable [phone] Bhavya Mooney APRN MUNICIPAL SERVICES MANAGER Unavailable Un available Ragini Ernandez RN Unavailable Unavaila Renetta Garza MD Unavailable + [phone] No Ref-Primary, Physician Primary Care Provider Renetta Rivera MD Unavailable + [phone] She Oh INSURANCE COLLECTOR Unavailable [phone] She Oh INSURANCE COLLECTOR Unavailable [phone] [facility] Unavailable Encounter Details Date Type Department Care Team (Late st Contact Info) Description 07/05/[address] [facility] [place] [address], [address] [facility] [place] [phone] Elida Shore, RN Social History Tobacco Use Types Packs/Day Years Used Date Smoking Tobacco: Never Smokeless Tobacco: Current Chew Alcohol Use Standard Drinks/Week Comments Yes 0 (1 standard drink = 0.6 oz pur e alcohol) socially PHQ-2 Answer Date Recorded PHQ-2 Score 0 06/16/2021 Sex and Gender Information Value Date Recorded Sex Assigned at Not on file Gender Identity Not on file Sexual Orientation Not on file COVID-19 Exposure Response Date Recorded In the last month, have you been in contact with someone who was confirmed or suspected to have Coronavirus / COVID-19? No / Unsure 07/07/2021 12:56 PM ELEMENTARY SCHOOL DIRECTOR documented as of this encounter Plan of Treatment Not on file documented as of this encounter Visit Diagnoses Not on filedocumented in this encounter Care Teams Laboratory Chemical Assistant Relationship Specialty Start Date End Date No Ref-Primary, Physician PCP - General 02/22/21 Linda To MD Hematology & Oncology 07/13/16 Bhavya Mooney APRN MUNICIPAL SERVICES MANAGER Assigned PCP 10/14/18 10/08/21 Ragini Ernandez RN Specialty Pulpwood Dealer Oncology 09/18/19 09/28/21 Renetta Rivera MD [address] [place] [address] Assigned Neuroscience Provider 03/06/20 08/26/22 Renetta Rivera MD [address] [place] [address] [id number] Assigned Neuroscience Provider 09/10/22 09/16/22 She Oh INSURANCE COLLECTOR [address] [place], [place] [address] Assigned Neuroscience Provider 08/27/22 09/09/22 She Oh NP [address] [place], [place] [address] Assigned Neuroscience Provider 09/17/22 02/03/23 [facility] Alexandra [address] [address] Assigned PCP 06/08/23 documented as of this encounter
--- OUTSIDE RECORDS SUMMARY | 2024-01-27 00:31 | XMS_ITS | Encounter Summary ---
Author Organization [facility] Address [address] [place] [address] Care Team Providers Care Risk Management Analyst Name Role Phone No Ref-Primary, Physician Primary Care Provider Ezequiel Reyes MD Primary Care Provid er Brenda Hicks RN Unavailable [phone] Renetta Rivera MD Unavailable [phone] Linda To MD Unavailable Martin Teague MD Unavailable Brenda Hicks RN Unavailable [phone] Martin Teague MD Unavailable No Ref-Primary, Physician Primary Care Provider Bhavya Mooney APRN ANIMAL GENETICIST Primary Care Provi gabino Unavailable Bhavya Mooney APRN ANIMAL GENETICIST Unavailable Un available Ragini Ernandez RN Unavailable Unavaila ble Renetta Rivera MD Unavailable + [phone] No Ref-Primary, Physician Primary Care Provider Renetta Rivera MD Unavailable + [phone] She Oh NP Unavailable She Oh NP Unavailable [phone] [facility] - [facility] Unavailable Reason for Visit * Reason Onset Date Comments Other 07/15/2015 Q about steroid use after surgery Encounter Details Date Type Department Care Team (Late st Contact Info) Description 07/15/2015 Telephone [facility] [address] [place] [address] Chidi Manzano NP [address] [facility] [address] [place], [place] [id number] Other (Q about steroid use after surgery) Social History Tobacco Use Types Packs/Day Years Used Date Smoking Tobacco: Never Alcohol Use Standard Drinks/Week Comments Yes 0 (1 standard drink = 0.6 oz pur e alcohol) socially Sex and Gender Information Value Date Recorded Sex Assigned at Not on file Gender Identity Not on file Sexual Orientation Not on file documented as of this encounter Miscellaneous Notes * Telephone Encounter - Chidi Manzano NP - 07/16/2015 10:02 AM CROSS CUT SAW OPERATOR Wean 2mg to daily 7 days. Then off. S CUT SAW OPERATOR * Telephone Encounter - Agueda Sweeney - 07/15/2015 1:27 PM CST Please call pt's dad, Charlie. Pt had craniotomy, wondering how to go about using steroids after surgery as his oncologist is not recommending radiation or chemo at this time. Wants to confirm Dr. Reyes' recommended care plan. S CUT SAW OPERATOR documented in this encounter Plan of Treatment Not on file documented as of this encounter Visit Diagnoses Not on filedocumented in this encounter Care Teams Risk Management Analyst Relationship Specialty Start Date End Date No Ref-Primary, Physician PCP - General 08/20/11 10/05/15 Ezequiel Reyes MD PCP - General Neurological Surgery 10/06/15 09/30/18 Martin Teague MD [address] [place] [address] [id number] PCP - Assigned PCP 05/27/16 07/17/18 No Ref-Primary, Physician PCP - General 10/01/18 10/16/18 Bhavya Mooney APRN ANIMAL GENETICIST PCP - General Nurse Practitioner - Adult Health 10/17/18 01/21/21 No Ref-Primary, Physician PCP - General 02/22/21 Brenda Hicks, RN Nurse Coordinator Oncology 11/22/16 07/12/18 Renetta Rivera MD [address] [place] [address] [id number] Neurology 11/22/16 06/17/19 Linda To MD [address] [place] [address] [id number] Hematology & Oncology 07/13/16 Brenda Hicks, RN Specialty Acid Crane Operator Oncology 04/10/18 09/17/19 Martin Teague MD [address] [place] [address] [phone] Assigned PCP 05/27/16 10/13/18 Bhvaya Mooney APRN ANIMAL GENETICIST Assigned PCP 10/14/18 10/08/21 Ragini Ernandez RN Specialty Acid Crane Operator Oncology 09/18/19 09/28/21 Renetta Rivera MD [address] [place] [address] Assigned Neuroscience Provider 03/06/20 08/26/22 Renetta Rivera MD [address] [place] [address] Assigned Neuroscience Provider 09/10/22 09/16/22 She Oh NP [address] [place] [address] Assigned Neuroscience Provider 08/27/22 09/09/22 She Oh NP [address] [place] [address] Assigned Neuroscience Provider 09/17/22 02/03/[address] 746887 Assigned PCP 06/08/23 documented as of this encounter
--- OUTSIDE RECORDS SUMMARY | 2024-01-27 00:31 | XMS_ITS | Encounter Summary ---
Author Organization [facility] Address [address] [place] [address]. [place] [address] Care Team Providers Care Senior Lead Developer Name Role Phone Linda To MD Unavailable [phone] Bhavya Mooney APRN HAND LASTER Primary Care Provi gabino Unavailable Bhavya Mooney APRN HAND LASTER Unavailable Un available Ragini Ernandez RN Unavailable Unavaila ble Renetta Rivera MD Unavailable + [phone] No Ref-Primary, Physician Primary Care Provider Renetta Rivera MD Unavailable + [phone] She Oh SHOER Unavailable [phone] She Oh SHOER Unavailable [phone] [facility] Unavailable Encounter Details Date Type Department Care Team (Late st Contact Info) Description 04/03/2020 MyC Medical Advice [facility] [address] [place] [phone] Yu Carreno FLASH RANGING CREWMEMBER Social History Tobacco Use Types Packs/Day Years [...] on filedocumented in this encounter Care Teams Senior Lead Developer Relationship Specialty Start Date End Date Bhavya Mooney APRN HAND LASTER PCP - General Nurse Practitioner - Adult Health 10/17/18 01/21/21 No Ref-Primary, Physician PCP - General 02/22/21 Linda To MD Hematology & Oncology 07/13/16 Bhavya Mooney APRN HAND LASTER Assigned PCP 10/14/18 10/08/21 Ragini Ernandez, RN Specialty Balance Weigher Oncology 09/18/19 09/28/21 Renetta Rivera MD [address] [place] [address] Assigned Neuroscience Provider 03/06/20 08/26/22 Renetta Rivera MD [address] [place] [address] [phone] Assigned Neuroscience Provider 09/10/22 09/16/22 She Oh NP [address] [place], [place] [address] Assigned Neuroscience Provider 08/27/22 09/09/22 She Oh NP [address] [place], [place] [address] Assigned Neuroscience Provider 09/17/22 02/03/23 [facility] [place] [place] [address] [address] Assigned PCP 06/08/23 documented as of this encounter
--- OUTSIDE RECORDS SUMMARY | 2024-01-27 00:31 | XMS_ITS | Clinical Summary ---
Author Organization [facility] Address [address] [place] [address]. [place] [address] Care Team Providers Care Sketch Maker Name Role Phone Linda To MD Unavailable No Ref-Primary, Physician Primary Care Provider [facility] Unavailable Allergies No known active allergies Medications Medication Sig Dispensed Refills Start Date End Date Status levETIRAcetam (KEPPRA) 1000 MG tabletIndications:Se izure disorder (H) Take 1 tablet (1,000 mg) by mouth 2 times daily 180 tablet 1 04/20/2021 Active senna-docusate (SENOKOT-S/PERICOLAC E) 8.6-50 MG tabletIndications:S/ P craniotomy Take 1 tablet by mouth 2 times daily 30 tablet 06/26/2021 Active hydrOXYzine (ATARAX) 25 MG tabletIndications:S/ P craniotomy Take 1 tablet (25 mg) by mouth every 6 hours as needed for other (adjuvant pain) 30 tablet 06/26/2021 Active dexamethasone (DECADRON) 2 MG tabletIndications:Br ain swelling (H) Take 1 tablet (2 mg) by mouth daily (with breakfast) 14 tablet 06/29/2021 Active HYDROmorphone (DILAUDID) 2 MG tabletIndications:S/ P craniotomy Take 1-2 tablets (2-4 mg) by mouth every 4 hours as needed for moderate to severe pain 40 tablet 07/09/2021 Active Active Problems Problem Noted Date Diagnosed Date S/P craniotomy 06/23/2021 Status post craniotomy 10/16/2018 Astrocytoma, 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 Immunizations Name Administration Dates Next Due Historical DTP/aP 10/10/1990 MMR 01/07/1998 OPV, trivalent, live 10/10/1990 Td (Adult), Adsorbed 04/14/2004,01/07/1998 Family History Medical History Relation Comments Breast Cancer Maternal Aunt Cancer Maternal Grandfather Family History Negative Mother Skin Cancer Paternal Grandmother Cerebrovascular Disease No family hx of Coronary Artery Disease No family hx of Diabetes No family hx of Hyperlipidemia No family hx of Hypertension No family hx of Relation Status Comments Father Alive Maternal Aunt Maternal Grandfather Mother Alive Paternal Grandmother Sister 1 Alive Sister 2 Alive Sister 3 Alive Social History Tobacco Use Types Packs/Day Years Used Date Smoking Tobacco: Never Smokeless Tobacco: Current Chew Tobacco Cessation:Counseling Given: No Alcohol Use Standard Drinks/Week Comments Yes 0 (1 standard drink = 0.6 oz pur e alcohol) socially PHQ-2 Answer Date Recorded PHQ-2 Score 0 06/16/2021 Adolescent Education Answer Date Record ed Getting School Help Needed Not on file 02/12 Sex and Gender Information Value Date Recorded Sex Assigned at Not on file Gender Identity Not on file Sexual Orientation Not on file Last Filed Vital Signs Vital Sign Reading Time Taken Comments Blood Pressure 122/85 08/04/2021 1:06 PM CDT Pulse 91 08/04/2021 1:06 PM CDT Temperature 36.7 ??C (98 ??F) 06/29/2021 1:09 PM GROUND OPERATIONS SUPERINTENDENT Respiratory Rate 16 06/29/2021 1:09 PM GROUND OPERATIONS SUPERINTENDENT Oxygen Saturation 98% 08/04/2021 1:06 PM CDT Inhaled Oxygen Concentration - - Weight 87.3 kg (192 lb 6.4 oz) 06/29/2021 1:09 P M GROUND OPERATIONS SUPERINTENDENT Height 180.3 cm (5' 11) 06/16/2021 10:30 AM GROUND OPERATIONS SUPERINTENDENT Body Mass Index 26.83 06/16/2021 10:30 AM GROUND OPERATIONS SUPERINTENDENT Plan of Treatment Health Maintenance Due Date Last Done Comments ANNUAL REVIEW OF HM ORDERS 1985 YEARLY PREVENTIVE VISIT 1985 HIV SCREENING 2000 HEPATITIS C SCREENING 2003 DTAP/TDAP/TD IMMUNIZATION (4 - Tdap) 04/15/2004 04/14/2004, 01/07/1998, 10/10/1990 HEPATITIS B IMMUNIZATION (1 of 3 - 19+ 3-dose series) 2004 PHQ-2 (once per calendar year) 2023 06/16/2021, 02/03/2016, 11/03/2015, Additional history exists COVID-19 Vaccine ( - 2022-24 season) 2024 INFLUENZA VACCINE (#1) 2024 GLUCOSE 06/25/2024 06/25/2021, 06/15, 06/24/2021, Additional history exists ADVANCE CARE PLANNING 06/16/2026 06/16/2021 HPV IMMUNIZATION Aged Out No longer e ligible based on patient's age to complete this topic MENINGITIS IMMUNIZATION Aged Out No l onger eligible based on patient's age to complete this topic Pneumococcal Vaccine: Pediatrics (0 to 5 Years) and At-Risk Patients (6 to 64 Years) Aged Out No longer eligible based on patient's age to complete this topic RSV MONOCLONAL ANTIBODY Aged Out No l onger eligible based on patient's age to complete this topic Medical Devices Implanted Type Area Chief Scientific Officer Device Identifier Shelf Expiration Date Model / Serial / Lot Imp Scr Syn Matrix Low Pro 1.5x04mm Self Drill .104.01 Implanted:Qty: 20 on 10/16/2018 by Mal Vargas MD at [facility] Metallic Hardware/An chor N/A: Skull SYNTHES-STRATEC .10 4.2018 Imp Plate Syn Holliday Hole Cover 17mm .023 Implanted:Qty: 2 on 10/16/2018 by Mal Vargas MD at [facility] Metallic Hardware/An chor N/A: Skull SYNTHES-STRATEC .2018 Imp Plate Syn Matrixneuro Str 2 Hole 12mm .062 Implanted:Qty: 5 on 10/16/2018 by Mal Vargas MD at [facility] Metallic Hardware/An chor N/A: Skull SYNTHES-STRATEC .2018 Imp Scr Syn Matrix Low Pro 1.5x04mm Self Drill [id number] - [id number] Implanted:Qty: 20 on 06/23/2021 by Mal Vargas MD at [facility] Metallic Hardware/An chor Left: Cranial SYNTHES-STRATEC .503.10 4.2021 Imp Plate Syn Hugo Hole Cover 17mm .023 - [id number] Implanted:Qty: 2 on 06/23/2021 by Mal Vargas MD at [facility] Metallic Hardware/An chor Left: Cranial SYNTHES-STRATEC .503.2021 Imp Plate Syn Matrixneuro Str 2 Hole 12mm .062 - [id number] Implanted:Qty: 4 on 06/23/2021 by Mal Vargas MD at [facility] Metallic Hardware/An chor Left: Cranial SYNTHES-STRATEC .06 2021 Graft Dural Matrix 2x2 [id number] Implanted:Qty: 1 on 07/02/2015 by Ezequiel Reyes MD at [facility] N/A: Skull [employer] 12/12/2015 [id number] / / [id number] Explanted Type Area Chief Scientific Officer Device Identifier Shelf Expiration Date Model / Serial / Lot Imp Plate Syn Holliday Hole Cover 17mm [id number] Implanted:Qty: 2 on 07/02/2015 by Ezequiel Reyes MD at [facility] Explanted:Qty: 2 on 10/16/2018 by Mal Vargas MD at [facility] N/A: Skull SYNTHES-STRATEC .02 3 / / 4 2 2 06/28/15 Imp Plate Syn Matrixneuro Str 2 Hole 12mm [id number] Implanted:Qty: 1 on 07/02/2015 by Ezequiel Reyes MD at [facility] Explanted:Qty: 1 on 10/16/2018 by Mal Vargas MD at [facility] N/A: Skull SYNTHES-STRATEC 04.503.06 2 / / LOAD 4 2 2 06/28/15 Imp Scr Syn Matrix Low Pro 1.5x04mm Self Drill .[id number] Implanted:Qty: 16 on 07/02/2015 by Ezequiel Reyes MD at [facility] Explanted:Qty: 16 on 10/16/2018 by Mal Vargas MD at [facility] N/A: Skull SYNTHES-STRATEC .503.10 4 .01 / / LOAD 4 2 2 06/28/15 Procedures Procedure Name Priority Date/Time Associated Diagnosis Comments GLUCOSE BY METER Routine 06/25/2021 5:56 AM GROUND OPERATIONS SUPERINTENDENT from Last 3 Months or Most Recently Relevant to Health Maintenance Results * (ABNORMAL) Glucose by meter (06/25/2021 5:56 AM GROUND OPERATIONS SUPERINTENDENT) GLUCOSE BY METER POCT 110(H) 70 - 99 mg/dL 06/25/2021 6:03 AM GROUND OPERATIONS SUPERINTENDENT LABORATORY POC Blood, Capillary BLOOD SPECIMEN / Unknown 06/25/2021 5:56 AM GROUND OPERATIONS SUPERINTENDENT 06/25/2021 6:03 AM GROUND OPERATIONS SUPERINTENDENT Mal Vargas MD LAB - [facility] POCT LABORATORY POC [facility] Lab [address] floor, [address] [place] [address], [facility] [phone] from Last 3 Months or Most Recently Relevant to Health Maintenance Advance Directives For more information, please contact: [phone] * Full Code (Latest Code Status on File) Date Activated Date Inactivated Comments 10/20/2018 11:14 AM 06/23/2021 10:34 AM Question Answer Comments Code status determined by: Discussion with patie nt/legal decision maker * Full Code Date Activated Date Inactivated Comments 10/16/2018 3:02 PM 10/20/2018 11:14 AM Question Answer Comments Code status determined by: Discussion with patie nt/legal decision maker * Full Code Date Activated Date Inactivated Comments 07/01/2015 8:05 PM 07/05/2015 2:43 PM Care Teams Sketch Maker Relationship Specialty Start Date End Date No Ref-Primary, Physician PCP - General 02/22/21 Linda To MD Hematology & Oncology 07/13/[address] [address] Assigned PCP 06/08/23
--- OUTSIDE RECORDS SUMMARY | 2024-01-27 00:31 | XMS_ITS | Encounter Summary ---
Author Organization [facility] Address [address] [place] [address]. [place] [address] Care Team Providers Care Combination Machine Tool Setter Name Role Phone Ezequiel Reyes MD Primary Care Provid er Brenda Hicks RN Unavailable [phone] Renetta Rivera MD Unavailable [phone] Linda To MD Unavailable [phone] Martin Teague MD Unavailable Brenda Hicks RN Unavailable [phone] Martin Teague MD Unavailable No Ref-Primary, Physician Primary Care Provider Bhavya Mooney APRN INTERNATIONAL BROADCAST MUSIC LIBRARIAN Primary Care Provi gabino Unavailable Bhavya Mooney APRN INTERNATIONAL BROADCAST MUSIC LIBRARIAN Unavailable Un available Ragini Ernandez RN Unavailable Unavaila Renetta Garza MD Unavailable + [phone] No Ref-Primary, Physician Primary Care Provider Renetta Rivera MD Unavailable [phone] She Oh NP Unavailable [phone] She Oh NP Unavailable [phone] [facility] Unavailable Reason for Visit * Reason Onset Date Comments Patient Reminder 04/24/2018 Encounter Details Date Type Department Care Team (Late st Contact Info) Description 04/24/2018 Telephone M [facility] [place] [address], [address] [facility] [place] [place] [phone] Renetta Rivera MD [address] [place] [address] Patient Reminder Social History Tobacco Use Types Packs/Day Years Used Date Smoking Tobacco: Never Dip, chew, snus or snuff Smokeless Tobacco: Never Comments:occ chew Alcohol Use Standard Drinks/Week Comments Yes 0 (1 standard drink = 0.6 oz pur e alcohol) socially Sex and Gender Information Value Date Recorded Sex Assigned at Not on file Gender Identity Not on file Sexual Orientation Not on file documented as of this encounter Miscellaneous Notes * Telephone Encounter - Loreta Pugh - 04/24/2018 3:32 PM CST Patient no showed for appt. Left message to see of he wanted to reschedule. TER OPERATOR documented in this encounter Plan of Treatment Not on file documented as of this encounter Visit Diagnoses Not on filedocumented in this encounter Care Teams Combination Machine Tool Setter Relationship Specialty Start Date End Date Ezequiel Reyes MD PCP - General Neurological Surgery 10/06/15 09/30/18 [place] [address] [place] [address] [id number] PCP - Assigned PCP 05/27/16 07/17/18 No Ref-Primary, Physician PCP - General 10/01/18 10/16/18 Bhavya Mooney APRN [facility] PCP - General Nurse Practitioner - Adult Health 10/17/18 01/21/21 No Ref-Primary, Physician PCP - General 02/22/21 Brenda Hicks, MILY Nurse Coordinator Oncology 11/22/16 07/12/18 Renetta Rivera MD [address] [place] [address] Neurology 11/22/16 06/17/19 Linda To MD [address] [place] [address] [phone] Hematology & Oncology 07/13/16 Brenda Hicks RN Specialty Cap Blocker Oncology 04/10/18 09/17/19 Martin Teague MD [address] [place] [address] [phone] Assigned PCP 05/27/16 10/13/18 Bhavya Mooney APRN INTERNATIONAL BROADCAST MUSIC LIBRARIAN Assigned PCP 10/14/18 10/08/21 Ragini Ernandez RN Specialty Cap Blocker Oncology 09/18/19 09/28/21 Renetta Rivera MD [address] [place] [address] Assigned Neuroscience Provider 03/06/20 08/26/22 Renetta Rivera MD [address] [place] [address] Assigned Neuroscience Provider 09/10/22 09/16/22 She Oh NP [address] [place] [address] Assigned Neuroscience Provider 08/27/22 09/09/22 She Oh NP [address] [place] [address] Assigned Neuroscience Provider 09/17/22 02/03/[address] 554127 Assigned PCP 06/08/23 documented as of this encounter
--- OUTSIDE RECORDS SUMMARY | 2024-01-27 00:31 | XMS_ITS | Encounter Summary ---
Author Organization [facility] Address [address] [place] [address]. [place] [address] Care Team Providers Care Clerical And Administrative Workers Name Role Phone Linda To MD Unavailable [phone] Bhavya Mooney APRN PLUMBER SUPERVISOR Unavailable Un available Ragini Ernandez RN Unavailable Unavaila Renetta Garza MD Unavailable + [phone] No Ref-Primary, Physician Primary Care Provider Renetta Rivera MD Unavailable + [phone] She Oh GAS TREATER Unavailable She Oh GAS TREATER Unavailable [facility] Unavailable Encounter Details Date Type Department Care Team (Late st Contact Info) Description 06/30/2021 MyC Medical Advice [facility] [place] [address] [facility] [place] [phone] Elida Shore, RN Social History Tobacco Use [...] have Coronavirus / COVID-19? No / Unsure 06/29/2021 1:05 PM DEV TECHNICAL MGR documented as of this encounter Plan of Treatment Not on file documented as of this encounter Visit Diagnoses Not on filedocumented in this encounter Care Teams Clerical And Administrative Workers Relationship Specialty Start Date End Date No Ref-Primary, Physician PCP - General 02/22/21 Linda To MD Hematology & Oncology 07/13/16 Bhavya Mooney APRN PLUMBER SUPERVISOR Assigned PCP 10/14/18 10/08/21 Ragini Ernandez RN Specialty Jockey'S Agent Oncology 09/18/19 09/28/21 Renetta Rivera MD [address] [place] [address] Assigned Neuroscience Provider 03/06/20 08/26/22 Renetta Rivera MD [address] [place] [address] [id number] Assigned Neuroscience Provider 09/10/22 09/16/22 She Oh GAS TREATER [address] [place], [place] [address] Assigned Neuroscience Provider 08/27/22 09/09/22 She Oh NP [address] [place], [place] [address] Assigned Neuroscience Provider 09/17/22 02/03/23 [facility] Alexandra [address] [address] Assigned PCP 06/08/23 documented as of this encounter
--- OUTSIDE RECORDS SUMMARY | 2024-01-27 00:31 | XMS_ITS | Encounter Summary ---
Author Organization [place] Address [address] [place] [address]. [place] [address] Care Team Providers Care Solar Crew Member Name Role Phone Linda To MD Unavailable Bhavya Mooney APRN MACERATOR OPERATOR Primary Care Provi gabino Unavailable Bhavya Mooney APRN MACERATOR OPERATOR Unavailable Un available Ragini Ernandez RN Unavailable Unavaila ble Renetta Rivera MD Unavailable + [phone] No Ref-Primary, Physician Primary Care Provider Renetta Rivera MD Unavailable + [phone] She Oh SERVICE MANAGER Unavailable She Oh SERVICE MANAGER Unavailable [facility] Unavailable Encounter Details Date Type Department Care Team (Late st Contact Info) Description 12/03/2019 MyC Medical Advice [facility] [place] [address] [employer] Medical [facility] [place] [address] Asha Thomas Social History Tobacco Use Types Packs/Day Years [...] have Coronavirus / COVID-19? No / Unsure 12/05/2019 10:02 AM CDT documented as of this encounter Plan of Treatment Not on file documented as of this encounter Visit Diagnoses Not on filedocumented in this encounter Care Teams Solar Crew Member Relationship Specialty Start Date End Date Bhavya Mooney APRN MACERATOR OPERATOR PCP - General Nurse Practitioner - Adult Health 10/17/18 01/21/21 No Ref-Primary, Physician PCP - General 02/22/21 Linda To MD Hematology & Oncology 07/13/16 Bhavya Mooney APRN MACERATOR OPERATOR Assigned PCP 10/14/18 10/08/21 Ragini Ernandez, RN Specialty Infection Prevention Specialist Oncology 09/18/19 09/28/21 Renetta Rivera MD [address] [place] [address] Assigned Neuroscience Provider 03/06/20 08/26/22 Renetta Rivera MD [address] [place] [address] Assigned Neuroscience Provider 09/10/22 09/16/22 She Oh NP [address] [place] [address] Assigned Neuroscience Provider 08/27/22 09/09/22 She Oh SERVICE MANAGER [address] [place] [address] Assigned Neuroscience Provider 09/17/22 02/03/[address] [address] Assigned PCP 06/08/23 documented as of this encounter
--- OUTSIDE RECORDS SUMMARY | 2024-01-27 00:31 | XMS_ITS | Referral Summary ---
Author Organization [place] Address [address] [place] [address]. [place] [address] Care Team Providers Care Elder Counselor Name Role Phone Linda To MD Unavailable No Ref-Primary, Physician Primary Care Provider [facility] Unavailable Allergies No known active allergies Medications [...] trivalent, live 10/10/1990 Td (Adult), Adsorbed 04/14/2004,01/07/1998 Social History Tobacco Use Types Packs/Day Years [...] 36.7 ??C (98 ??F) 06/29/2021 1:09 PM MANAGER CORPORATE COMMUNICATIONS Respiratory Rate 16 06/29/2021 1:09 PM MANAGER CORPORATE COMMUNICATIONS Oxygen Saturation 98% 08/04/2021 1:06 PM CDT Inhaled Oxygen Concentration - - Weight 87.3 kg (192 lb 6.4 oz) 06/29/2021 1:09 P M MANAGER CORPORATE COMMUNICATIONS Height 180.3 cm (5' 11) 06/16/2021 10:30 AM MANAGER CORPORATE COMMUNICATIONS Body Mass Index 26.83 06/16/2021 10:30 AM MANAGER CORPORATE COMMUNICATIONS Plan of Treatment Not on file Medical Devices Implanted Type Area Manuscripts Archivist Device Identifier Shelf Expiration Date Model / Serial / Lot Imp Scr Syn Matrix Low Pro 1.5x04mm Self Drill .[id number] Implanted:Qty: 20 on 10/16/2018 by Mal Vargas MD at [facility] Metallic Hardware/An chor N/A: Skull SYNTHES-STRATEC [id number] 4.01 / / [id number] 2018 Imp Plate Syn [place] Hole Cover 17mm 503.023 Implanted:Qty: 2 on 10/16/2018 by Mal Vargas MD at [facility] Metallic Hardware/An chor N/A: Skull SYNTHES-STRATEC .2018 Imp Plate Syn Matrixneuro Str 2 Hole 12mm .062 Implanted:Qty: 5 on 10/16/2018 by Mal Vargas MD at [facility] Metallic Hardware/An chor N/A: Skull SYNTHES-STRATEC .2018 Imp Scr Syn Matrix Low Pro 1.5x04mm Self Drill .104.01 - [id number] Implanted:Qty: 20 on 06/23/2021 by Mal Vargas MD at [facility] Metallic Hardware/An chor Left: Cranial SYNTHES-STRATEC .10 4.2021 Imp Plate Syn [place] Hole Cover 17mm .023 - [id number] Implanted:Qty: 2 on 06/23/2021 by Mal Vargas MD at [facility] Metallic Hardware/An chor Left: Cranial SYNTHES-STRATEC .2021 Imp Plate Syn Matrixneuro Str 2 Hole 12mm .062 - [id number] Implanted:Qty: 4 on 06/23/2021 by Mal Vargas MD at [facility] Metallic Hardware/An chor Left: Cranial SYNTHES-STRATEC .2021 Graft Dural Matrix 2x2 [id number] Implanted:Qty: 1 on 07/02/2015 by Ezequiel Reyes MD at [facility] N/A: Skull [employer] 12/12/2015 [id number] / / [id number] Explanted Type Area Manuscripts Archivist Device Identifier Shelf Expiration Date Model / Serial / Lot Imp Plate Syn [place] Hole Cover 17mm .023 Implanted:Qty: 2 on 07/02/2015 by Ezequiel Reyes MD at [facility] Explanted:Qty: 2 on 10/16/2018 by Mal Vargas MD at [facility] N/A: Skull SYNTHES-STRATEC .503.02 3 / / LOAD 4 2 2 06/28/15 Imp Plate Syn Matrixneuro Str 2 Hole 12mm 503.062 Implanted:Qty: 1 on 07/02/2015 by Ezequiel Reyes MD at [facility] Explanted:Qty: 1 on 10/16/2018 by Mal Vargas MD at [facility] N/A: Skull SYNTHES-STRATEC .503.06 2 / / LOAD 4 2 2 06/28/15 Imp Scr Syn Matrix Low Pro 1.5x04mm Self Drill [id number] Implanted:Qty: 16 on 07/02/2015 by Ezequiel Reyes MD at [facility] Explanted:Qty: 16 on 10/16/2018 by Mal Vargas MD at [facility] N/A: Skull SYNTHES-STRATEC .503.10 4 .01 / / LOAD 4 2 2 06/28/15 Procedures Procedure Name Priority Date/Time Associated Diagnosis Comments GLUCOSE BY METER Routine 06/25/2021 5:56 AM MANAGER CORPORATE COMMUNICATIONS from Last 3 Months or Most Recently Relevant to Health Maintenance Results * (ABNORMAL) Glucose by meter (06/25/2021 5:56 AM MANAGER CORPORATE COMMUNICATIONS) GLUCOSE BY METER POCT 110(H) 70 - 99 mg/dL 06/25/2021 6:03 AM MANAGER CORPORATE COMMUNICATIONS LABORATORY POC Blood, Capillary BLOOD SPECIMEN / Unknown 06/25/2021 5:56 AM MANAGER CORPORATE COMMUNICATIONS 06/25/2021 6:03 AM MANAGER CORPORATE COMMUNICATIONS Mal SCHWARZ POCT LABORATORY POC [facility] [address] floor, [address] [place] [address], [facility] [phone] from Last 3 Months or Most Recently Relevant to Health Maintenance Advance Directives For more information, please contact: [phone] * Full Code (Latest Code Status on File) Date Activated Date Inactivated Comments 10/20/2018 11:14 AM 06/23/2021 10:34 AM Question Answer Comments Code status determined by: Discussion with zane nt/legal decision maker * Full Code Date Activated Date Inactivated Comments 10/16/2018 3:02 PM 10/20/2018 11:14 AM Question Answer Comments Code status determined by: Discussion with dada nt/legal decision maker * Full Code Date Activated Date Inactivated Comments 07/01/2015 8:05 PM 07/05/2015 2:43 PM Care Teams Elder Counselor Relationship Specialty Start Date End Date No Ref-Primary, Physician PCP - General 02/22/21 Linda To MD Hematology & Oncology 07/13/[address] [address] Assigned PCP 06/08/23
--- OUTSIDE RECORDS SUMMARY | 2024-01-27 00:31 | XMS_ITS | Encounter Summary ---
Author Organization [facility] Address [address] [place] [address]. [place] [address] Care Team Providers Care Bulldozer/Loader/Compactor/Scraper Name Role Phone Linda To MD Unavailable [phone] Bhavya Mooney APRN HARDBOARD GRINDER Unavailable Un available Ragini Ernandez RN Unavailable Unavaila Rneetta Garza MD Unavailable + [phone] No Ref-Primary, Physician Primary Care Provider Renetta Rivera MD Unavailable + [phone] She Oh PROCESSING SPEC Unavailable She Oh PROCESSING SPEC Unavailable [facility] Unavailable Encounter Details Date Type Department Care Team (Late st Contact Info) Description 07/14/2021 MyC Medical Advice [facility] [place] [address] [facility] [place] [id number] Elida Shore, RN Social History Tobacco Use [...] COVID-19? No / Unsure 07/07/2021 12:56 PM PROCESS ENGINEERING TECHNICIAN documented as of this encounter Plan of Treatment Not on file documented as of this encounter Visit Diagnoses Not on filedocumented in this encounter Care Teams Bulldozer/Loader/Compactor/Scraper Relationship Specialty Start Date End Date No Ref-Primary, Physician PCP - General 02/22/21 Linda To MD Hematology & Oncology 07/13/16 Bhavya Mooney APRN HARDBOARD GRINDER Assigned PCP 10/14/18 10/08/21 Ragini Ernandez RN Specialty Histopathologist Oncology 09/18/19 09/28/21 Renetta Rivera MD [address] [place] [address] Assigned Neuroscience Provider 03/06/20 08/26/22 Renetta Rivera MD [address] [place] [address] [id number] Assigned Neuroscience Provider 09/10/22 09/16/22 She Oh PROCESSING SPEC [address] [place], [place] [address] Assigned Neuroscience Provider 08/27/22 09/09/22 She Oh NP [address] [place], [place] [address] Assigned Neuroscience Provider 09/17/22 02/03/23 [facility] Alexandra [address] [address] Assigned PCP 06/08/23 documented as of this encounter
--- OUTSIDE RECORDS SUMMARY | 2024-01-27 00:31 | XMS_ITS | Encounter Summary ---
Author Organization [place] Address [address] [place] [address]. [place] [address] Care Team Providers Care Daily Release And Dupe Printer Name Role Phone Yousuf Linda Cruz MD Unavailable Bhavya Mooney APRN SIGNAL MANAGER Primary Care Provi gabino Unavailable Bhavya Mooney APRN SIGNAL MANAGER Unavailable Un available Ragini Ernandez RN Unavailable Unavaila [facility] Renetta Rivera MD Unavailable + [phone] No Ref-Primary, Physician Primary Care Provider Renetta Rivera MD Unavailable + [phone] She Oh EMERGENCY MANAGEMENT COORDINATOR Unavailable She Oh EMERGENCY MANAGEMENT COORDINATOR Unavailable [facility] [place] [facility] Unavailable Encounter Details Date Type Department Care Team (Late st Contact Info) Description 11/27/2020 MyC Medical Advice [facility] [place] [address] [facility] [place] [address] Ragini Ernandez, RN Social History Tobacco Use Types Packs/Day [...] have Coronavirus / COVID-19? No / Unsure 11/24/2020 2:22 PM CDT documented as of this encounter Plan of Treatment Not on file documented as of this encounter Visit Diagnoses Not on filedocumented in this encounter Care Teams Daily Release And Dupe Printer Relationship Specialty Start Date End Date Bhavya Mooney APRN SIGNAL MANAGER PCP - General Nurse Practitioner - Adult Health 10/17/18 01/21/21 No Ref-Primary, Physician PCP - General 02/22/21 Linda To MD Hematology & Oncology 07/13/16 Bhavya Mooney APRN SIGNAL MANAGER Assigned PCP 10/14/18 10/08/21 Rgaini Ernandez, RN Specialty Hr Intern Oncology 09/18/19 09/28/21 Renetta Rivera MD [address] [place] [address] Assigned Neuroscience Provider 03/06/20 08/26/22 Renetta Rivera MD [address] [place] [address] Assigned Neuroscience Provider 09/10/22 09/16/22 She Oh NP [address] [address] Assigned Neuroscience Provider 08/27/22 09/09/22 She Oh NP [address] [place] [address] Assigned Neuroscience Provider 09/17/22 02/03/[address] [address] Assigned PCP 06/08/23 documented as of this encounter
--- OUTSIDE RECORDS SUMMARY | 2024-01-27 00:31 | XMS_ITS | Encounter Summary ---
Author Organization [place] Address [address] [place] [address]. [place] [address] Care Team Providers Care Degreaser Operator Name Role Phone Linda To MD Unavailable [phone] Bhavya Mooney APRN STEAMFITTER SUPERVISOR Unavailable Un available Ragini Ernandez RN Unavailable Unavaila Renetta Garza MD Unavailable + [phone] No Ref-Primary, Physician Primary Care Provider Renetta Rivera MD Unavailable + [phone] She Oh RETAIL ADVERTISING EXECUTIVE Unavailable She Oh RETAIL ADVERTISING EXECUTIVE Unavailable [facility] Unavailable Encounter Details Date Type Department Care Team (Late st Contact Info) Description 08/06/2021 MyC Medical Advice [facility] [place] [address] [facility] [place] [phone] Elida Shore, RN Social History Tobacco Use [...] have Coronavirus / COVID-19? No / Unsure 08/04/2021 1:02 PM CDT documented as of this encounter Plan of Treatment Not on file documented as of this encounter Visit Diagnoses Not on filedocumented in this encounter Care Teams Degreaser Operator Relationship Specialty Start Date End Date No Ref-Primary, Physician PCP - General 02/22/21 Linda To MD Hematology & Oncology 07/13/16 Bhavya Mooney APRN STEAMFITTER SUPERVISOR Assigned PCP 10/14/18 10/08/21 Ragini Ernandez RN Specialty Control Systems Developer Oncology 09/18/19 09/28/21 Renetta Rivera MD [address] [place] [address] Assigned Neuroscience Provider 03/06/20 08/26/22 Renetta Rivera MD [address] [place] [address] [id number] Assigned Neuroscience Provider 09/10/22 09/16/22 She Oh RETAIL ADVERTISING EXECUTIVE [address] [place], [place] [address] Assigned Neuroscience Provider 08/27/22 09/09/22 She Oh RETAIL ADVERTISING EXECUTIVE [address] [place], [place] [address] Assigned Neuroscience Provider 09/17/22 02/03/23 [facility] [address] [address] Assigned PCP 06/08/23 documented as of this encounter
--- OUTSIDE RECORDS SUMMARY | 2024-01-27 00:32 | XMS_ITS | Encounter Summary ---
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 [address] [place] [phone] [facility] Referral ID Status Reason Start Date Expiration Date Visits Re quested Visits Authorized [id number] Closed 05/31/2023 05/30/2026 1 1 Encounter Details Date Type Department Care Team ([facility] st Contact Info) Description 10/25/2023 2:30 PM CDT Office Visit Department of Neurology in [place], [place] [address] [place] [address] Jonas Hamlin M.D. 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 No 03/01/2022 Within the last year, have y ou been humiliated or emotionally abused in other ways by your partner or ex-partner? No Within the last year, have y ou been kicked, hit, slapped, or otherwise physically hurt by your partner or ex-partner? No 03/01/2022 Within the last year, have y ou been raped or forced to have any kind of sexual activity by your partner or ex-partner? No 03/01/2022 Social Connection and Isolat ion Panel [NHANES] Answer Date Recorded In a typical week, how many times do you talk on the phone with family, friends, or neighbors? More than three times a week 03/01/2022 How often do you get togethe r with friends or relatives? Patient declined 03/01/2022 How often do you attend chur or jainism services? 1 to 4 times per year 03/01/2022 Do you belong to any clubs o r organizations such as judaism groups, unions, fraternal or athletic groups, or school groups? Patient declined 03/01/2022 How often do you attend meet ings of the clubs or organizations you belong to? Never 03/01/2022 Are you , , di vorced, , never , or living with a partner? 03/01/2022 AUDIT-C Answer Date Recorded Q1: How often do you have a drink containing alc ohol? Never 03/01/2022 Average Number of Drinks Not on file 022 Frequency of Binge Drinking Not on file 02/12 Overall Financial Resource Strain (CARDIA) Answe r Date Recorded How hard is it for you to pa y for the very basics like food, housing, medical care, and heating? Somewhat hard 03/01/2022 PHQ-2 Answer Date Recorded PHQ-2 Score 0 07/07/2022 [facility] - Occupational Stress Questionnaire Answer Date Recorded Do you feel stress - tense, restless, nervous, or anxious, or unable to sleep at night because your mind is troubled all the time - these days? To some extent 03/01/2022 Exercise Vital Sign Answer Date Recorde d On average, how many days pe r week do you engage in moderate to strenuous exercise (like a brisk walk)? 0 days 03/01/2022 On average, how many minutes do you engage in exercise at this level? 0 min 03/01/2022 Hunger Vital Sign Answer Date Recorded Within the past 12 months, y ou worried that your food would run out before you got the money to buy more. Never true 03/01/20 22 Within the past 12 months, t he food you bought just didn't last and you didn't have money to get more. Never true 03/01/2022 PRAPARE - Transportation Answer Date Re corded In the past 12 months, has l ack of transportation kept you from medical appointments or from getting medications? No 02/12 In the past 12 months, has l ack of transportation kept you from meetings, work, or from getting things needed for daily living? No 03/01/2022 Housing Stability Vital Sign Answer Juni e Recorded In the last 12 months, was t here a time when you were not able to pay the mortgage or rent on time? No 03/01/2022 In the last 12 months, how many places have you lived? 1 03/01/2022 In the last 12 months, was t here a time when you did not have a steady place to sleep or slept in a chcf (including now)? No 03/01/2022 Depression Answer Date Recor ded PHQ-9 Total Score (max 27) 6 07/07 Nutrition Answer Date Recorded On average, how many serving s of fruits and vegetables do you eat per day (serving size is equal to 1 cup or approximately the size of a tennis ball)? 2-3 03/01/2022 Dental Answer Date Recorded Dental: Regular Dentist No 08/21/19 Employment Answer Date Recorded Employment status Employed but not working due t o illness or injury 03/01/2022 Education Answer Date Recorded What is the highest level of school you have completed or the highest degree you have received? Bachelor's degree (e.g., BA, AB, BS) 08/20/2021 Sex and Gender Information Value Date Recorded Sex Assigned at Male 07/14/2021 8:16 AM RIGGER THIRD Gender Identity Male 07/14/2021 8:16 AM RIGGER THIRD Sexual Orientation Straight 07/14/2021 8: 16 AM RIGGER THIRD documented as of this encounter Last Filed Vital Signs Vital Sign Reading Time Taken Comments Blood Pressure - - Pulse - - Temperature - - Respiratory Rate - - Oxygen Saturation - - Inhaled Oxygen Concentration - - Weight 105 kg (232 lb 2.3 oz) 10/25/2023 2:29 PM CDT Height 181 cm (5' 11.26) 10/25/2023 2:29 PM CDT Body Mass Index 32.14 10/25/2023 2:29 PM CDT documented in this encounter Progress Notes * Jonas Hamlin M.D. - 10/25/2023 2:30 PM CDT SUBJECTIVE CHIEF COMPLAINT / REASON FOR VISIT Return to follow-up neurologic condition INTERIM HISTORY Patient is stable since last visit. Shanique denies any seizures. He feels quite well at present time. He has completed his temozolomide treatment. OBJECTIVE PHYSICAL EXAMINATION Alert and oriented distress gait unremarkable. Good eye contact, no aphasia. REVIEW OF SYSTEMS REVIEW OF SYSTEMS TEST RESULTS Blood tests: None this visit EEG: none this visit MRI: August 2023-MRI head showed previous resection left posterior frontal region-no evidence of tumor recurrence. 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 He indicates he needs prescription sent to [facility], which allows a three-month supply of his medications. PLAN: Sent new prescriptions for Briviact 100 mg tablets 2 tablets twice daily, and lacosamide 200 mg tablets 1 tablet twice daily, 90 day supply of each with 3 refills to [facility] pharmacy. I would like to see the patient in 1 year with the following prescheduled tests: none. TIME: Time spent face to face, providing counseling and coordination of care, and performing clinical documentation was 20 minutes. documented in this encounter Plan of Treatment Upcoming Encounters Date Type Department Care Team (Late st Contact Info) Description 01/29/2024 9:00 AM CDT Clinical Communication Virtual Review in [place], [place] [address] [place] [address] 01/31/2024 9:45 AM CDT Appointment Department of Radiology, [facility] in [address] [address] Geena Willams P.A.-C., M.S. [address] [place] [phone] 01/31/2024 3:00 PM CDT Office Visit Department of Oncology in [address] [phone] Geena Willams P.A.-C., M.S. 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
--- OUTSIDE RECORDS SUMMARY | 2024-01-27 00:32 | XMS_ITS | Clinical Summary ---
Author Organization [facility] Address [address] [place] [address] Care Team Providers Care Sponsorship Manager Name Role Phone Elsewhere, Pcp Primary Care Provider Unavailabl e Source Comments Patient records contain information from all sites at [facility]. For routine questions regarding patient records, call [phone] during business hours, M-F 8:00 AM - 5:00 PM Central Time. Record requests for emergency care only can be directed to [phone] at any time.[facility] Allergies Active Allergy Reactions Criticality Noted Date Comments Pollen Extracts Other (see comments) 10/27/2021 Zonisamide Other (see comments) 05/30/2022 Suicidal ideations Medications Medication Sig Dispensed Refills Start Date End Date Status acetaminophen (TYLENOL) 325 mg tablet Take 325-650 mg by mouth every 6 (six) hours as needed for pain. Active midazolam (Nayzilam) 5 mg/spray (0.1 mL) spray,non-aerosol nasal sprayIndications:F ocal Epilepsy Symptomatic Not Intractable Without Status Epilepticus (HCC) Administer 1 spray (5 mg total) into one nostril as needed (Administer 1 spray for sz >5 minutes or seizure clusters. May repeat once after 10 minutes.). 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 Satya Reyes, neurosurgery at [facility]. 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 10/16/2018 second??SURGERY: Craniotomy by Dr. Vargas. 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 Next generation sequencing through [facility]; Microsatellite Instability Seq DNA- Tumor Stable. Tumor Mutational [employer] Seq DNA-Tumor: Low (5). Genomic Loss of Heterozygosity Seq DNA-Tumor: Low - 6% -06/23/2021??thrid??SURGERY: Craniotomy for mass resection by Dr. Vargas. PATHOLOGY: WHO grade 2 recurrence. Histologic sections show a hypercellular lesion with numerous gemistocytic neoplastic cells. The mitotic activity is inconspicuous. No necrosis or microvascular proliferation is seen. Post-operative imaging with no evidence for residual enhancement Counseling Phase Of Life Problem 01/11/2022 Astrocytoma 07/14/2021 Family History Medical History Relation Name Comments Macular degeneration Paternal Grandmother Glaucoma Neg Hx Relation Name Status Comments Paternal Grandmother Social History Tobacco Use Types Packs/Day Years Used Date Smoking Tobacco: Never Smokeless Tobacco: Former Chew Quit: 05/15/2022 Tobacco Cessation:Counseling Given: Not Answered Alcohol Use Standard Drinks/Week Comments Not Currently [...] How often do you attend chur or bahai services? 1 to 4 times per year 03/01/2022 Do you belong to any clubs o r organizations such as buddhism groups, unions, fraternal or athletic groups, or [...] Answer Date Recorded PHQ-2 Score 0 07/07/2022 [facility] of Occupat ional Health - Occupational Stress [...] money to buy more. Never true 03/01/20 Within the past 12 months, t he [...] place to sleep or slept in a skilled nursing (including now)? No 03/01/2022 Depression Answer Date [...] Sex Assigned at Male 07/14/2021 8:16 AM DOUBLE END TRIMMER Gender Identity Male 07/14/2021 8:16 AM DOUBLE END TRIMMER Sexual Orientation Straight 07/14/2021 8: 16 AM DOUBLE END TRIMMER Last Filed Vital Signs Vital Sign Reading Time Taken Comments Blood Pressure 132/85 09/11/2023 1:11 PM CDT Pulse 67 09/11/2023 1:11 PM CDT Temperature 36.2 ??C (97.2 ??F) 09/11/2023 1:11 PM CD T Respiratory Rate 16 05/30/2022 8:45 AM DOUBLE END TRIMMER Oxygen Saturation 98% 09/11/2023 1:11 PM CDT Inhaled Oxygen Concentration - - Weight 105 kg (232 lb 2.3 oz) 10/25/2023 2:29 PM CDT Height 181 cm (5' 11.26) 10/25/2023 2:29 PM CDT Body Mass Index 32.14 10/25/2023 2:29 PM CDT Plan of Treatment Upcoming Encounters Date Type Department Care Team (Late st Contact Info) Description 01/29/2024 9:00 AM CDT Clinical Communication Virtual Review in [place], [place] [address] [place] [address] 01/31/2024 9:45 AM CDT Appointment Department of Radiology, [facility] in [place], [place] [address] [place] [phone] Geena Willams P.A.Zaire., M.S. [address] [place] [phone] 01/31/2024 3:00 PM CDT Office Visit Department of Oncology in [address] [phone] Geena Willams P.A.-C., M.S. [address] [place] [phone] Health Maintenance Due Date Last Done Comments HIV Screening 1985 Hepatitis C Screening 1985 COVID-19 Vaccine (#1) 1990 Pneumococcal vaccine (0-64 years) (1 of 2 - PCV) 1991 Hepatitis B Vaccines (1 of 3 - 19+ 3-dose series) 2004 Zoster Vaccines (1 of 2) 2004 Depression Screening (Annual PHQ-2) 05/15/2023 Influenza Vaccine (#1) 2024 Lipid (Cholesterol) Screening 12/13/2027 12/12/2022 DTaP,Tdap,and Td Vaccines (5 - Td or Tdap) 12/12/2032 12/12/2022, 04/14/2004, 01/07/1998, Additional history exists Glucose Test for Med Monitoring Discontinued 06/17/2022, 04/12/2022, 03/14/2022, Additional history exists HPV Vaccines Aged Out No longer eligi ble based on patient's age to complete this topic Procedures Procedure Name Priority Date/Time Associated Diagnosis Comments COMPREHENSIVE METABOLIC PANEL, S/P Routine 06/17/2022 8:44 AM DOUBLE END TRIMMER Astrocytoma (HCC) from Last 3 Months or Most Recently Relevant to Health Maintenance Results * (ABNORMAL) Comprehensive Metabolic Panel (06/17/2022 8:44 AM DOUBLE END TRIMMER) Potassium, S 4.9 3.6 - 5.2 mmol/L 06/17/2022 10:09 AM DOUBLE END TRIMMER DTL Sodium, S 143 135 - 145 mmol/L 06/17/2022 10:09 AM DOUBLE END TRIMMER DTL Chloride, S 105 98 - 107 mmol/L 06/17/2022 10:09 AM DOUBLE END TRIMMER DTL Bicarbonate, S 29 22 - 29 mmol/L 06/17/2022 10:09 AM DOUBLE END TRIMMER DTL Anion Gap 9 7 - 15 06/17/2022 10:09 AM DOUBLE END TRIMMER DTL BUN (Blood Urea Nitrogen), S 15 8 - 24 mg/dL 06/17/2022 10:09 AM DOUBLE END TRIMMER DTL Creatinine 1.20 0.74 - 1.35 mg/dL 06/17/2022 10:09 AM DOUBLE END TRIMMER DTL Estimated GFR (eGFR) 80 >=60 mL/min/BS A 06/17/2022 10:09 AM DOUBLE END TRIMMER DTL Comment: Estimated GFR calculated using the 2020 CKD_EPI creatinine equation. Calcium, Total, S 9.5 8.6 - 10.0 mg/dL 06/17/2022 10:09 AM DOUBLE END TRIMMER DTL Glucose, S 58(L) 70 - 140 mg/dL 06/17/2022 10:09 AM DOUBLE END TRIMMER DTL Protein, Total, S 6.8 6.3 - 7.9 g/dL 06/17/2022 10:09 AM DOUBLE END TRIMMER DTL Albumin, S 4.6 3.5 - 5.0 g/dL 06/17/2022 10:09 AM DOUBLE END TRIMMER DTL Aspartate Aminotransferase (AST), S 24 8 - 48 U/L 06/17/2022 10:09 AM DOUBLE END TRIMMER DTL Alkaline Phosphatase, S 76 40 - 129 U/L 06/17/2022 10:09 AM DOUBLE END TRIMMER DTL Alanine Aminotransferase (ALT), S 36 7 - 55 U/L 06/17/2022 10:09 AM DOUBLE END TRIMMER DTL Bilirubin, Total, S 0.3 <=1.2 mg/dL 06/17/2022 10:09 AM DOUBLE END TRIMMER DTL Blood (Blood, Venous) 06/17/2022 8:44 AM DOUBLE END TRIMMER 06/17/2022 9:48 AM DOUBLE END TRIMMER Geena Willams P.A.-C., M.S. LAB BLOOD ADD-ON [facility] [address] [place] [address], [facility] [address] [place] [address] from Last 3 Months or Most Recently Relevant to Health Maintenance Advance Directives For more information, please contact: [phone] * Full Code (Latest Code Status on File) Date Activated Date Inactivated Comments 05/27/2022 8:54 AM 05/30/2022 2:00 PM Question Answer Comments Full Code: Discussed Care Teams Sponsorship Manager Relationship Specialty Start Date End Date Elsewhere, Pcp PCP - General Internal Medicine 09/08/23
--- OUTSIDE RECORDS SUMMARY | 2024-01-27 00:32 | XMS_ITS | Referral Summary ---
Author Organization [facility] Address [address] [place] [address] Care Team Providers Care Sales/Marketing Name Role Phone Elsewhere, Pcp Primary Care Provider Unavailabl e Source Comments Patient records contain information from all sites at [facility]. For routine questions regarding patient records, call [phone] during business hours, M-F 8:00 AM - 5:00 PM Central Time. Record requests for emergency care only can be directed to [phone] at any time.[facility] Allergies Active Allergy Reactions Criticality Noted Date [...] 05/27/2022 Assessment & Plan (05/27/2022 9:27 AM CO FOUNDER AND PRESIDENT): 07/02/15 SURGERY-Left frontal craniotomy with resection by Dr. Satya Reyes, neurosurgery at [facility]. 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 10/16/2018 second??SURGERY: Craniotomy by Dr. Vargas. 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 Next generation sequencing through [facility]; Microsatellite Instability Seq DNA- Tumor Stable. Tumor Mutational [employer] Seq DNA-Tumor: Low (5). Genomic Loss of [...] Phase Of Life Problem 01/11/2022 Astrocytoma 07/14/2021 Social History Tobacco Use Types Packs/Day Years [...] How often do you attend chur or islam services? 1 to 4 times per year 03/01/2022 Do you belong to any clubs o r organizations such as taoist groups, unions, fraternal or athletic groups, or [...] Answer Date Recorded PHQ-2 Score 0 07/07/2022 [facility] of Occupat ional Health - Occupational Stress [...] place to sleep or slept in a fdc (including now)? No 03/01/2022 Depression Answer Date [...] Sex Assigned at Male 07/14/2021 8:16 AM CO FOUNDER AND PRESIDENT Gender Identity Male 07/14/2021 8:16 AM CO FOUNDER AND PRESIDENT Sexual Orientation Straight 07/14/2021 8: 16 AM CO FOUNDER AND PRESIDENT Last Filed Vital Signs Vital Sign Reading Time Taken Comments Blood Pressure 132/85 09/11/2023 1:11 PM CDT Pulse 67 09/11/2023 1:11 PM CDT Temperature 36.2 ??C (97.2 ??F) 09/11/2023 1:11 PM CD T Respiratory Rate 16 05/30/2022 8:45 AM CO FOUNDER AND PRESIDENT Oxygen Saturation 98% 09/11/2023 1:11 PM CDT [...] AM CDT Clinical Communication Virtual Review in [address] [phone] 01/31/2024 9:45 AM CDT Appointment Department of Radiology, [facility] in [address] [phone] Geena Willams P.A.-C., M.S. [address] [place] [phone] 01/31/2024 3:00 PM CDT Office Visit Department of Oncology in [address] [phone] Geena Willams P.A.-C., M.S. [address] [place] [phone] Procedures Procedure Name Priority Date/Time Associated Diagnosis Comments COMPREHENSIVE METABOLIC PANEL, S/P Routine 06/17/2022 8:44 AM CO FOUNDER AND PRESIDENT Astrocytoma (HCC) from Last 3 Months or Most Recently Relevant to Health Maintenance Results * (ABNORMAL) Comprehensive Metabolic Panel (06/17/2022 8:44 AM CO FOUNDER AND PRESIDENT) Potassium, S 4.9 3.6 - 5.2 mmol/L 06/17/2022 10:09 AM CO FOUNDER AND PRESIDENT DTL Sodium, S 143 135 - 145 mmol/L 06/17/2022 10:09 AM CO FOUNDER AND PRESIDENT DTL Chloride, S 105 98 - 107 mmol/L 06/17/2022 10:09 AM CO FOUNDER AND PRESIDENT DTL Bicarbonate, S 29 22 - 29 mmol/L 06/17/2022 10:09 AM CO FOUNDER AND PRESIDENT DTL Anion Gap 9 7 - 15 06/17/2022 10:09 AM CO FOUNDER AND PRESIDENT DTL BUN (Blood Urea Nitrogen), S 15 8 - 24 mg/dL 06/17/2022 10:09 AM CO FOUNDER AND PRESIDENT DTL Creatinine 1.20 0.74 - 1.35 mg/dL 06/17/2022 10:09 AM CO FOUNDER AND PRESIDENT DTL Estimated GFR (eGFR) 80 >=60 mL/min/BS A 06/17/2022 10:09 AM CO FOUNDER AND PRESIDENT DTL Comment: Estimated GFR calculated using the 2020 CKD_EPI creatinine equation. Calcium, Total, S 9.5 8.6 - 10.0 mg/dL 06/17/2022 10:09 AM CO FOUNDER AND PRESIDENT DTL Glucose, S 58(L) 70 - 140 mg/dL 06/17/2022 10:09 AM CO FOUNDER AND PRESIDENT DTL Protein, Total, S 6.8 6.3 - 7.9 g/dL 06/17/2022 10:09 AM CO FOUNDER AND PRESIDENT DTL Albumin, S 4.6 3.5 - 5.0 g/dL 06/17/2022 10:09 AM CO FOUNDER AND PRESIDENT DTL Aspartate Aminotransferase (AST), S 24 8 - 48 U/L 06/17/2022 10:09 AM CO FOUNDER AND PRESIDENT DTL Alkaline Phosphatase, S 76 40 - 129 U/L 06/17/2022 10:09 AM CO FOUNDER AND PRESIDENT DTL Alanine Aminotransferase (ALT), S 36 7 - 55 U/L 06/17/2022 10:09 AM CO FOUNDER AND PRESIDENT DTL Bilirubin, Total, S 0.3 <=1.2 mg/dL 06/17/2022 10:09 AM CO FOUNDER AND PRESIDENT DTL Blood (Blood, Venous) 06/17/2022 8:44 AM CO FOUNDER AND PRESIDENT 06/17/2022 9:48 AM CO FOUNDER AND PRESIDENT Geena Willams P.A.-C., M.S. LAB BLOOD ADD-ON [facility] [address] [place] [address], [place] DTL [facility] [address] [place] [address] from Last 3 Months or Most Recently Relevant to Health Maintenance Advance Directives For more information, please contact: [phone] * Full Code (Latest Code Status on File) Date Activated Date Inactivated Comments 05/27/2022 8:54 AM 05/30/2022 2:00 PM Question Answer Comments Full Code: Discussed Care Teams Sales/Marketing Relationship Specialty Start Date End Date Elsewhere, Pcp PCP - General Internal Medicine 09/08/23
--- OUTSIDE RECORDS SUMMARY | 2024-01-27 00:32 | XMS_ITS ---
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 Satya Reyes, neurosurgery at [facility]. 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 10/16/2018 second??SURGERY: Craniotomy by Dr. Vargas. 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 Next generation sequencing through [facility]; Microsatellite Instability Seq DNA- Tumor Stable. Tumor Mutational [employer] Seq DNA-Tumor: Low (5). Genomic Loss of [...] Phase Of Life Problem 01/11/2022 Astrocytoma 07/14/2021 Current Oncology Plans No current plan information found. Past Plans Hematology / Oncology Treatment 1 Plan Name Start Date Discontinue Date Treatment Medications Discontinue Reason Plan Provider Cycles Temozolomide 5 Days ( STEM MOUNTER - Glioma ) 2 05/27/2022 IMS TEMPLATE Therapy Complete Geena Willams P.A.-C., M.S. 6 of 6 cycles started Radiation Treatments * Plan Last Treated On Elapsed Days Fractions Treated Prescribed Fraction Dose Prescribed Total Dose [id number] 09/27/2021 42 26 of 28 190 cGy 5,320 cGy [id number] 08/27/2021 1 2 of 28 190 cGy 5,320 cGy Reference Point Last Treated On Elapsed Days Session Dose Total Dose [id number] 09/27/2021 42 190 cGy 4,940 cGy [id number] 08/27/2021 1 190 cGy 380 cGy
--- OUTSIDE RECORDS SUMMARY | 2024-01-27 00:32 | XMS_ITS ---
Author Organization [facility] Address [address] [place] [address] Care Team Providers Care Tacking Stitch Remover Name Role Phone Unavailable Unavailable Unavailable Surgery Details Not on file Complications Check Surgery Details section. Procedure Estimated Blood Loss Check Surgery Details section. Procedure Findings Check Surgery Details section. Procedure Specimens Taken Check Surgery Details section.
--- OUTSIDE RECORDS SUMMARY | 2024-01-27 00:32 | XMS_ITS | Encounter Summary ---
Author Organization [facility] Address [address] [place] [address] Care Team Providers Care Motor Adjuster Name Role Phone Elsewhere, Pcp Primary Care Provider Unavailabl e Reason for Visit * Reason Onset Date Comments FMLA Paperwork 10/24/2023 Encounter Details Date Type Department Care Team (Latest Contact Info) Description 10/24/2023 Clinical Communication Department of Oncology in [place], [place] [address] [place] [phone] Shayla Guzman RAnnaNAnna [address] [place] [phone] FMLA Paperwork Social History Tobacco Use Types Packs/Day Years [...] 03/01/2022 How often do you attend chur ch or scientologist services? 1 to 4 times per year 03/01/2022 Do you belong to any clubs o r organizations such as adventist groups, unions, fraternal or athletic groups, or [...] Answer Date Recorded PHQ-2 Score 0 07/07/2022 [facility] of Occupat ional Health - Occupational Stress [...] place to sleep or slept in a half-way (including now)? No 03/01/2022 Depression Answer Date [...] Sex Assigned at Male 07/14/2021 8:16 AM PIECE WORK INSPECTOR Gender Identity Male 07/14/2021 8:16 AM PIECE WORK INSPECTOR Sexual Orientation Straight 07/14/2021 8: 16 AM PIECE WORK INSPECTOR documented as of this encounter Plan of Treatment Upcoming Encounters Date Type Department Care Team (Late st Contact Info) Description 01/29/2024 9:00 AM CDT Clinical Communication Virtual Review in [place], [place] [address] [place] [address] 01/31/2024 9:45 AM CDT Appointment Department of Radiology, [facility] in [place], [place] [address] [place] [address] Geena Willams P.A.-C., M.S. [address] [place] [phone] 01/31/2024 3:00 PM CDT Office Visit Department of Oncology in [place], [place] [address] [place] [address] Geena Willams P.A.-C., M.S. [address] [place] [address] documented as of this encounter Visit Diagnoses Not on filedocumented in this encounter Additional Health Concerns Assessment Noted Time PHQ-9 Depression Total Score: 6 07/07/19 23 9:59 AM PIECE WORK INSPECTOR documented as of this encounter Care Teams Motor Adjuster Relationship Specialty Start Date End Date Elsewhere, Pcp PCP - General Internal Medicine 09/08/23 documented as of this encounter
[2024-01-27 00:47] LABS: D Dimer Quantitative* 0.26 ug/ml (0.00-0.50)
[2024-01-27 01:43] VITALS: BP 130/82; PULSE 77; RESP 18
== END 2024-01-27 01:43 | disposition home or self-care (01) ==
PROVIDERS: Emergency Provider Emergency Medicine; PCP Student in an Organized Health Care Education/Training Program
DX: R07.9 Chest pain, unspecified (principal)
CPT/HCPCS: 36415; 71046; 80048; 84484; 85025; 85379; 93005; 99283; 99284; 99285